=== PATIENT | female | born 1990 | race Caucasian/White ===

== ENCOUNTER 2023-06-28 15:11 | Outpatient (OUT) | payer OTHER, SELFPAY ==
[2023-06-29 04:07] LABS: Progesterone 0.1 ng/mL (.)
== END 2023-06-28 15:12 | disposition home or self-care (01) ==
PROVIDERS: Visit Provider Obstetrics & Gynecology
DX: Z31.89 Encounter for other procreative management (principal)
CPT/HCPCS: 36415; 84144

== ENCOUNTER 2023-08-13 14:51 | Outpatient (OUT) | payer OTHER, SELFPAY ==
[2023-08-14 04:07] LABS: Progesterone 3.2 ng/mL (.)
== END 2023-08-13 14:52 | disposition home or self-care (01) ==
PROVIDERS: Visit Provider Obstetrics & Gynecology
DX: Z31.89 Encounter for other procreative management (principal)
CPT/HCPCS: 36415; 84144

== ENCOUNTER 2023-09-12 12:28 | Outpatient (OUT) | payer OTHER, SELFPAY | END 2023-09-12 12:29 | disposition home or self-care (01) | LOC: LAB 12:29 | PROVIDERS: Visit Provider Obstetrics & Gynecology | DX: Z31.89 Encounter for other procreative management (principal) | CPT/HCPCS: 36415; 84144 ==

== ENCOUNTER 2023-09-28 09:05 | Outpatient (OUT) | payer OTHER, SELFPAY ==
--- OUTSIDE RECORDS SUMMARY | 2023-09-28 09:09 | XMS_ITS | CCD ---
Author Name Unknown Address [address] [place] [address] Organization [facility] Care Team Providers Care Caisson Worker Name Role Phone RACHEL AGUILAR Referring Unavailable Rachel Aguilar Primary Care Provider DR BUSHRA MATHUR Admitting Unavailable DR BUSHRA MATHUR Attending Unavailable [facility], DR MURCIA Primary Care Unavailable DR BUSHRA MATHUR Consulting Unavailable DR EUGENE HAY Consulting Unavailable Unavailable Primary Care Provider UnavailCOOKIE Tyson Attending Unavailable Allergies Allergy Classification Reported Allergen(s) Allergy Type Date of Onset Reaction(s) Facility (1 source) Contrast media Allergy to substance 9 [facility] Work Phone: (1 source) Other Allergy to substance Other [facility] Work Phone: (1 source) Iodine (And Iodine Containting Drugs) Drug allergy (disorder) [facility] (1 source) Iodides Propensity to adverse reactions to drug [address] [facility] Medications Current Medications Medication Drug Class(es) Dates Sig (Normalized) Sig (Original) aspirin 81 mg delayed release oral tablet (1 source) Platelet Aggregation Inhibitor, Nonsteroidal Anti-inflammatory Drug Start: 09-17-2019 Adult Aspirin EC Low Strength 81 MG Oral Tablet Delayed Release 09/17/2019 Provider: hydrocortisone 25 mg/ml topical lotion (1 source) Corticosteroid Start: 09-17-2019 Hydrocortisone 2.5% External Lotion 09/17/2019 Provider: Rachel Aguilar CNP ketoconazole 20 mg/ml topical cream (1 source) Azole Antifungal Start: 09-17-2019 Ketoconazole 2% External Cream 09/17/2019 Provider: omeprazole 20 mg delayed release oral capsule (1 source) Proton Pump Inhibitor Start: 02-06-2023 take 1 capsule by mouth twice daily before mealtime omeprazole (PRILOSEC) 20 MG delayed release capsule Take 1 capsule by mouth 2 times daily (before meals) 60 capsule 0 02/06/2023 Active progesterone 50 mg/ml injectable solution (1 source) Progesterone Start: 09-17-2019 Progesterone 50 MG/ML Intramuscular Oil 09/17/2019 Provider: SUMAtriptan 50 mg oral tablet (1 source) Serotonin-1b and Serotonin-1d Receptor Agonist Start: 12-22-2016 take 1 tablet by mouth once as needed SUMAtriptan (IMITREX) 50 MG tablet Take 1 tablet by mouth once as needed for Migraine 9 tablet 3 12/22/2016 Active Completed/Discontinued Medications Medication Drug Class(es) Dates Sig (Normalized) Sig (Original) aluminum & magnesium hydroxide-simethicon e (MAALOX) 30 mL, lidocaine viscous hcl (XYLOCAINE) 5 mL (GI COCKTAIL) (1 source) Start: 02-06-2023 End: 02-06-2023 aluminum & magnesium hydroxide-simethicon e (MAALOX) 30 mL, lidocaine viscous hcl (XYLOCAINE) 5 mL (GI COCKTAIL) amoxicillin 500 mg oral tablet (1 source) Penicillin-class Antibacterial Start: 04-24-2017 End: 04-24-2017 Amoxicillin 500 MG OR TABS 04/24/2017 - 04/24/2017 Provider: 1 ml diphenhydrAMINE hydrochloride 50 mg/ml cartridge (1 source) Histamine-1 Receptor Antagonist Start: 02-06-2023 End: 02-06-2023 diphenhydrAMINE (BENADRYL) injection 25 mg ferrous sulfate (2 sources) Start: 10-26-2018 End: 10-26-2018 FERROUS SULFATE [facility] 10/26/2018 - 10/26/2018 Provider: Start: 02-05-2017 take 1 tablet by stevan th twice daily ferrous sulfate 325 (65 FE) MG tablet take 1 tablet by mouth twice a day 0 02/05/2017 Active Ibuprofen (2 sources) Nonsteroidal Anti-inflammatory Drug Start: 10-26-2018 End: 10-26-2018 IBUPROFEN [facility] 10/26/2018 - 10/26/2018 Provider: Start: 02-05-2017 take 1 tablet by stevan th every eight hours as needed for pain ibuprofen (ADVIL;MOTRIN) 800 MG tablet Take 1 tablet by mouth every 8 hours as needed for Pain 30 tablet 0 02/05/2017 Active iopamidol (ISOVUE-370) 76 % injection 75 mL (1 source) Start: 02-06-2023 End: 02-06-2023 iopamidol (ISOVUE-370) 76 % injection 75 mL 2 ml ondansetron 2 mg/ml injection (1 source) Serotonin-3 Receptor Antagonist Start: 02-06-2023 End: 02-06-2023 ondansetron (ZOFRAN) injection 4 mg Sertraline (2 sources) Serotonin Reuptake Inhibitor Start: 10-26-2018 End: 10-26-2018 SERTRALINE 25 MG MISC 10/26/2018 - 10/26/2018 Provider: Start: 12-25-2016 take 1 tablet by stevan once daily sertraline (ZOLOFT) 25 MG tablet Indications: Depression complicating in second trimester, antepartum , 16 weeks gestation of Take 1 tablet by mouth daily 30 tablet 3 12/25/2016 Active Problems Active Problems Problem Classification Problem Date Documented Da te Episodic/Chronic Allergic reactions (2 sources) Contact dermatitis; Translations: [Contact Dermatitis] Onset: 09-17-2019 Episodic Gastritis and duodenitis (2 sources) Acute superficial gastritis; Translations: [Acute gastritis without bleeding] Onset: 02-06-2023 Episodic Menstrual disorders (4 sources) Irregular menstruation, unspecified; Translations: [IRREGULAR MENSTRUATION UNSPECIFIED] Onset: 08-23-2022 Chronic Nausea and vomiting (1 source) Vomiting without nausea; Translations: [Vomiting without nausea] 12-22-2016 Episodic Other complications of ; puerperium affecting management of mother (1 source) Third-stage hemorrhage; Translations: [Retained placenta without hemorrhage, delivered, with mention of complication] 02-04-2017 Episodic Residual codes; unclassified (1 source) Gestation period, 21 weeks; Translations: [21 weeks gestation of ] 02-04-2017 Episodic Substance-related disorders (1 source) Smoker; Translations: [Nicotine dependence, unspecified, uncomplicated] Onset: 02-03-2017 02-03-2017 Chronic Past or Other Problems Problem Classification Problem Date Documented Date Episodic/Chronic Early or threatened labor (1 source) Premature uterine contraction; Translations: [False labor before 37 completed weeks of gestation, unspecified trimester] Onset: 02-03-2017 02-04-2017 Episodic Hemorrhage during ; abruptio placenta; placenta previa (1 source) Antepartum hemorrhage; Translations: [Hemorrhage in early , unspecified] Onset: 02-03-2017 02-03-2017 Episodic Other complications of (1 source) High risk ; Translations: [Supervision of high risk , unspecified, second trimester] Onset: 02-03-2017 02-03-2017 Episodic Other complications of (1 source) RhD negative; Translations: [Other specified related conditions, first trimester] Onset: 10-30-2016 Resolved: 02-15-2017 02-15-2017 Episodic Other complications of (1 source) Spotting per vagina in ; Translations: [Spotting complicating , first trimester] Onset: 10-30-2016 Resolved: 02-15-2017 02-15-2017 Episodic Other and delivery including normal (1 source) Vaginal delivery; Translations: [Encounter for full-term uncomplicated delivery] Onset: 02-04-2017 02-04-2017 Episodic Polyhydramnios and other problems of amniotic cavity (1 source) Chorioamnionitis; Translations: [Chorioamnionitis, unspecified trimester, not applicable or unspecified] Onset: 02-04-2017 02-04-2017 Episodic Substance-related disorders (1 source) Marijuana user; Translations: [Cannabis use, unspecified, uncomplicated] Onset: 02-03-2017 02-03-2017 Episodic Unclassified (1 source) Finding of body mass index; Translations: [Body Mass Index] Onset: 09-17-2019 Unclassified (1 source) Questionnaires Phq-9 Total Score; Translations: [Questionnaires Phq-9 Total Score] Onset: 09-17-2019 Results Test Name Value Interpretation Reference Range Facility CT ABDOMEN PELVIS W IV CONTR Hank 02-07-2023 CT ABDOMEN PELVIS W IV CONTRAST EXAMINATION: CT OF THE ABDOMEN AND PELVIS WITH CONTRAST 02/06/2023 8:41 pm TECHNIQUE: CT of the abdomen and pelvis was performed with the administration of intravenous contrast. Multiplanar reformatted images are provided for review. Automated exposure control, iterative reconstruction, and/or weight based adjustment of the mA/kV was utilized to reduce the radiation dose to as low as reasonably achievable. COMPARISON: CT scan of abdomen and pelvis with intravenous contrast on 02/16/2016. HISTORY: ORDERING SYSTEM PROVIDED HISTORY: RUQ and epigastric pain TECHNOLOGIST PROVIDED HISTORY: RUQ and epigastric pain Decision Support Exception - unselect if not a suspected or confirmed emergency medical condition->Emergenc y Medical Condition (MA) FINDINGS: Lower Chest: Bases of lungs are clear. No evidence of pleural effusion. No evidence of hiatal hernia. No pneumoperitoneum. Organs: No demonstrable abnormality in liver, gallbladder, spleen, pancreas, bilateral adrenal glands or in bilateral kidneys. No evidence of obstructive uropathy. Normal bladder. GI/Bowel: No diagnostic finding in stomach. Small amount of gas scattered in multiple loops of distal small bowel with a few small fluid levels. There is normal appendix posteroinferior to cecum in pelvic position. Small amount of stool and gas scattered in cecum and ascending colon. There are a few small fluid levels in the ascending colon. In the transverse colon moderate amount of gas and small amount of stool are present. In the descending colon small amount of stool and gas are scattered. In proximal sigmoid colon small to moderate amount of gas and small amount of stool are present. Distal sigmoid colon is mostly empty. Small amount of gas present in the rectum. There is no evidence of diverticulosis coli. No evidence of colitis. No pericolic inflammatory change. Pelvis: No focal abnormal fluid collection or inflammatory change in pelvis. Retroflexed normal uterus. No adnexal mass. Peritoneum/Retroper itoneum: No evidence of periaortic or mesenteric pathologic lymphadenopathy. Normal abdominal aorta and mesenteric arteries. No ascites. Bones/Soft Tissues: At L4-L5 level, evidence of sole posterior protrusion of disc without significant stenosis. At L5-S1 level, mild degenerative disc disease with moderately prominent broad-based central posterior disc protrusion causing moderate central stenosis. Mild stenosis of neural foramina bilaterally. IMPRESSION: Normal liver, gallbladder, spleen, pancreas and kidneys. No obstructive uropathy. Normal appendix visualized. Small amount of gas scattered in multiple loops of small bowel with a few fluid levels. Findings may be nonspecific but acute enteritis is not excluded. No sign of colitis. Small to moderate amount of stool and gas in proximal colon. No diverticulosis coli. There is no acute process in the pelvis. No pelvic mass or abnormal fluid collection. No pneumoperitoneum. At L5-S1 level, moderately prominent posterior central disc protrusion with moderate central stenosis. Interpreted by: Tim Driver MD Signed by: Tim Driver MD 02/07/[address] [facility] CBC with Auto Differentialon 02-06-2023 Absolute Eos # 0.18 [facility] Absolute Immature Granulocyte 0.04 [facility] Absolute Lymph # 3.34 [facility] Absolute Blanco # 0.56 [facility] Basophils (Bld) [#/Vol] 0.06 10*3/uL [facility] Basophils/100 WBC (Bld) 1 % 0 - 2 % B ON [facility] Eosinophils/100 WBC (Bld) 2 % 1 - 4 % [facility] Hematocrit (Bld) [Volume fraction] 44.8 % 36.3 - 47.1 % [facility] Hemoglobin (Bld) [Mass/Vol] 15.1 g/dL 11.9 - 15.1 g/dL [facility] Immature granulocytes/100 WBC (Bld) 0 % 0 [facility] Interpretation and review of laboratory results Abnormal [facility] Lymphocytes/100 WBC (Bld) 28 % 24 - 43 % [facility] MCH (RBC) [Entitic mass] 29.5 pg 25. 2 - 33.5 pg [facility] MCHC (RBC) [Mass/Vol] 33.7 g/dL 28.4 - 34.8 g/dL [facility] MCV (RBC) [Entitic vol] 87.5 fL 82.6 - 102.9 fL [facility] Monocytes/100 WBC (Bld) 5 % 3 - 12 % B ON [facility] NRBC Automated 0.0 0.0 per 100 WBC [facility] Platelet distribution width (Bld) [Ratio] 12.0 % 11.8 - 14.4 % [facility] Platelet mean volume (Bld) [Entitic vol] 9.8 fL 8.1 - 13.5 fL [facility] Platelets (Bld) [#/Vol] 329 10*3/uL [facility] RBC (Bld) [#/Vol] 5.12 10*6/uL High 3.95 - 5.1 1 m/uL [facility] Segmented neutrophils/100 WBC (Bld) 64 % 36 - 65 % [facility] Segs Absolute 7.69 [facility] WBC (Bld) [#/Vol] 11.9 10*3/uL High [facility] CBC with Diffon 02-06-2023 Abs. Basophil 0.06 k/uL Normal 0.00-0.20 [facility] Comment on above: Performed By: #### C DP, HCG, CP, LIP #### [facility] [address] [place], [place] [id number] [employer]er Motor Vehicle: Donte Reyes MD Abs.Imm.Granulocyte 0.04 k/uL Normal 0.00-0.[address] [facility] Comment on above: Performed By: #### C DP, HCG, CP, LIP #### [address] [place] [id number] [employer]er Motor Vehicle: Donte Reyes MD Abs.Neutrophil (Seg) 7.69 k/uL Normal 1.50-8.10 [facility] Comment on above: Performed By: #### C DP, HCG, CP, LIP #### [address] [place], [facility]83 [employer]: Donte Reyes MD Basophils/100 WBC (Bld) 1 % Normal 0-2 [facility] Comment on above: Performed By: #### C DP, HCG, CP, LIP #### [address] [place] [address] [employer] Motor Vehicle: Donte Reyes MD Eosinophils (Bld) [#/Vol] 0.18 10*3/uL Normal 0.00-0.[address] [facility] Comment on above: Performed By: #### C DP, HCG, CP, LIP #### [address] [place] [address] [employer] Vehicle: Donte Reyes MD Eosinophils/100 WBC (Bld) 2 % Normal 1-[address] [facility] Comment on above: Performed By: #### C DP, HCG, CP, LIP #### [address] [place], [facility]83 [employer] Vehicle: Donte Reyes MD Erythrocyte distribution width (RBC) [Ratio] 12.0 % Normal 11.8-14.[address] [facility] Comment on above: Performed By: #### C DP, HCG, CP, LIP #### [address] [place], [facility]83 [employer] Vehicle: Donte Reyes MD Hematocrit (Bld) [Volume fraction] 44.8 % Normal 36.3-47.[address] [facility] Comment on above: Performed By: #### C DP, HCG, CP, LIP #### [address] [place], [place] [address] As[employer] Motor Vehicle: Donte Reyes MD Hemoglobin (Bld) [Mass/Vol] 15.1 g/dL Normal 11.9-15.[address] [facility] Comment on above: Performed By: #### C DP, HCG, CP, LIP #### [address] [place], [place] [address] [employer] Motor Vehicle: Donte Reyes MD Immature granulocytes/100 WBC (Bld) 0 % Normal [address] [facility] Comment on above: Performed By: #### C DP, HCG, CP, LIP #### [address] [place], [facility]83 [employer] Vehicle: Donte Reyes MD Lymphocytes (Bld) [#/Vol] 3.34 10*3/uL Normal 1.10-3.[address] [facility] Comment on above: Performed By: #### C DP, HCG, CP, LIP #### [address] [place], [facility]83 [employer] Vehicle: Donte Reyes MD Lymphocytes/100 WBC (Bld) 28 % Normal 24-[address] [facility] Comment on above: Performed By: #### C DP, HCG, CP, LIP #### [facility] [address] [place], [place] [id number] [employer] Vehicle: Donte Reyes MD MCH (RBC) [Entitic mass] 29.5 pg Normal 25.2-33.[address] [facility] Comment on above: Performed By: #### C DP, HCG, CP, LIP #### [address] [place], [facility]83 [employer] Vehicle: Donte Reyes MD MCHC (RBC) [Mass/Vol] 33.7 g/dL Normal 28.4-34.8 [facility] Comment on above: Performed By: #### C DP, HCG, CP, LIP #### [address] [place], [facility]83 [employer] Motor Vehicle: Donte Reyes MD MCV (RBC) [Entitic vol] 87.5 fL Normal 82.6-102.9 [facility] Comment on above: Performed By: #### C DP, HCG, CP, LIP #### [address] [place], [facility]83 [employer] Vehicle: Donte Reyes MD Monocytes (Bld) [#/Vol] 0.56 10*3/uL Normal 0.10-1.[address] [facility] Comment on above: Performed By: #### C DP, HCG, CP, LIP #### [address] [place], [place] [id number] [employer] Vehicle: Donte Reyes MD Monocytes/100 WBC (Bld) 5 % Normal 3-12 [facility] Comment on above: Performed By: #### C DP, HCG, CP, LIP #### [address] [place] [address] Assembler Motor Vehicle: Donte Reyes MD Neutrophil (Seg) 64 % Normal 36-65 [facility] Comment on above: Performed By: #### C DP, HCG, CP, LIP #### [address] [place], [place] [id number] [employer]er Motor Vehicle: Donte Reyes MD NRBC Automated 0.0 per [address] WBC Normal [address] [facility] Comment on above: Performed By: #### C DP, HCG, CP, LIP #### [address] [place], [facility]83 [employer] Vehicle: Donte Reyes MD Platelet mean volume (Bld) [Entitic vol] 9.8 fL Normal 8.1-13.[address] [facility] Comment on above: Performed By: #### C DP, HCG, CP, LIP #### [address] [place], [place] [id number] [employer] Vehicle: Donte Reyes MD Platelets (Bld) [#/Vol] 329 10*3/uL Normal 138-[address] [facility] Comment on above: Performed By: #### C DP, HCG, CP, LIP #### [address] [place], [place] [phone] [employer] Vehicle: Donte Reyes MD RBC (Bld) [#/Vol] 5.12 10*6/uL High 3.95-5.[address] [facility] Comment on above: Performed By: #### C DP, HCG, CP, LIP #### [address] [place], [place] [id number] [employer] Motor Vehicle: Donte Reyes MD WBC (Bld) [#/Vol] 11.9 10*3/uL High 3.5-11.[address] [facility] Comment on above: Performed By: #### C DP, HCG, CP, LIP #### [address] [place], [place] [id number] [employer] Vehicle: Donte Reyes MD CMPon 02-06-2023 Albumin [Mass/Vol] 5 g/dL 3.5 - 5.2 g/dL [facility] Albumin/Globulin [Mass ratio] 1.6 {ratio} 1.0 - 2.5 [facility] ALP [Catalytic activity/Vol] 61 U/L 35 - 104 U/L [facility] ALT [Catalytic activity/Vol] 15 U/L 5 - 33 U/L [facility] Anion gap [Moles/Vol] 10 mmol/L 9 - 17 mmol/L [facility] AST [Catalytic activity/Vol] 15 U/L NINF - 32 U/L [facility] Bilirubin [Mass/Vol] 0.6 mg/dL 0.3 - 1 .2 mg/dL [facility] Calcium [Mass/Vol] 10.4 mg/dL 8.6 - 10. 4 mg/dL [facility] Chloride [Moles/Vol] 100 mmol/L 98 - 10 7 mmol/L [facility] CO2 [Moles/Vol] 28 mmol/L 20 - 31 mmol/L [facility] Creatinine [Mass/Vol] 0.69 mg/dL 0.50 - 0.90 mg/dL [facility] GFR/1.73 sq M.predicted MDRD (S/P/Bld) [Vol rate/Area] - PINF [facility] Comment on above: These results are not intended for use in patients <18 years of age. eGFR results are calculated without a race factor using the 2020 CKD-EPI equation. Careful clinical correlation is recommended, particularly when comparing to results calculated using previous equations. The CKD-EPI equation is less accurate in patients with extremes of muscle mass, extra-renal metabolism of creatine, excessive creatine ingestion, or following therapy that affects renal tubular secretion. Glucose [Mass/Vol] 96 mg/dL 70 - 99 mg/dL [facility] Interpretation and review of laboratory results Abnormal [facility] Potassium [Moles/Vol] 3.5 mmol/L Low 3.7 - 5.3 mmol/L [facility] Protein [Mass/Vol] 8.1 g/dL 6.4 - 8.3 g/dL [facility] Sodium [Moles/Vol] 138 mmol/L 135 - 144 mmol/L [facility] Urea nitrogen [Mass/Vol] 12 mg/dL 6 - 20 mg/d L [facility] Urea nitrogen/Creatinine (Bld) [Mass ratio] 17 9 - 20 [facility] Comp Metabolic Profon 2022 Albumin [Mass/Vol] 5.0 g/dL Normal 3.5-5.[address] [facility] Comment on above: Performed By: #### C DP, HCG, CP, LIP #### [facility] [address] [place], [place] [id number] [employer]: Donte Reyes MD Albumin/Glob Ratio 1.6 Normal 1.0-2.[address] [facility] Comment on above: Performed By: #### C DP, HCG, CP, LIP #### [address] [place], [place] [phone] [employer] Vehicle: Donte Reyes MD Alkaline Phos 61 U/L Normal 35-104 [facility] Comment on above: Performed By: #### C DP, HCG, CP, LIP #### [address] [place], [place] [phone] [employer] Vehicle: Donte Reyes MD ALT [Catalytic activity/Vol] 15 U/L Normal 5-[address] [facility] Comment on above: Performed By: #### C DP, HCG, CP, LIP #### [address] [place], [place] [phone] [employer] Vehicle: Donte Reyes MD Anion gap [Moles/Vol] 10 mmol/L Normal 9-17 [facility] Comment on above: Performed By: #### C DP, HCG, CP, LIP #### [address] [place], [place] [phone] [employer] Vehicle: Donte Reyes MD AST [Catalytic activity/Vol] 15 U/L Normal <[address] [facility] Comment on above: Performed By: #### C DP, HCG, CP, LIP #### [facility] [address] [place], [place] [address] [employer]: Donte Reyes MD Bilirubin [Mass/Vol] 0.6 mg/dL Normal 0.3-1.2 [facility] Comment on above: Performed By: #### C DP, HCG, CP, LIP #### [facility] [address] [place], [place] [phone] [employer] Vehicle: Donte Reyes MD BUN/CRE Ratio 17 Normal 9-20 [facility] Comment on above: Performed By: #### C DP, HCG, CP, LIP #### [facility] [address] [place], [place] [id number] [employer] Vehicle: Donte Reyes MD Calcium [Mass/Vol] 10.4 mg/dL Normal 8.6-10.[address] [facility] Comment on above: Performed By: #### C DP, HCG, CP, LIP #### [facility] [address] [place], [place] [phone] [employer]: Donte Reyes MD Chloride [Moles/Vol] 100 mmol/L Normal 98-107 [facility] Comment on above: Performed By: #### C DP, HCG, CP, LIP #### [address] [place], [place] [phone] [employer]: Donte Reyes MD CO2 [Moles/Vol] 28 mmol/L Normal 20-31 [facility] Comment on above: Performed By: #### C DP, HCG, CP, LIP #### [facility] [address] [place], [place] [phone] [employer]: Donte Reyes MD Creatinine [Mass/Vol] 0.69 mg/dL Normal 0.50-0.90 [facility] Comment on above: Performed By: #### C DP, HCG, CP, LIP #### [facility] [address] [place] [address] [employer]: Donte Reyes MD GFR/1.73 sq M.predicted among non-blacks MDRD (S/P/Bld) [Vol rate/Area] mL/min/{1.73_m2} Normal >[address] [facility] Comment on above: Result Comment: These results are not intended for use in patients <18 years of age. eGFR results are calculated without a race factor using the 2020 CKD-EPI equation. Careful clinical correlation is recommended, particularly when comparing to results calculated using previous equations. The CKD-EPI equation is less accurate in patients with extremes of muscle mass, extra-renal metabolism of creatine, excessive creatine ingestion, or following therapy that affects renal tubular secretion. Performed By: #### C DP, HCG, CP, LIP #### [address] [place] [address] [employer]: Donte Reyes MD Glucose [Mass/Vol] 96 mg/dL Normal 70-[address] [facility] Comment on above: Performed By: #### C DP, HCG, CP, LIP #### [address] [place] [address] [employer] Vehicle: Donte Reyes MD Potassium [Moles/Vol] 3.5 mmol/L Low 3.7-5.3 [facility] Comment on above: Performed By: #### C DP, HCG, CP, LIP #### [address] [place] [address] [employer]: Donte Reyes MD Protein [Mass/Vol] 8.1 g/dL Normal 6.4-8.[address] [facility] Comment on above: Performed By: #### C DP, HCG, CP, LIP #### [address] [place] [address] [employer]: Donte Reyes MD Sodium [Moles/Vol] 138 mmol/L Normal [address] [facility] Comment on above: Performed By: #### C DP, HCG, CP, LIP #### [facility] [address] [place] [address] [employer]: Donte Reyes MD Urea nitrogen [Mass/Vol] 12 mg/dL Normal 6-[address] [facility] Comment on above: Performed By: #### C DP, HCG, CP, LIP #### [facility] [address] [place] [address] [employer] Vehicle: Donte Reyes MD HCG Qualitative, Serumon hCG Qual Negative NEGATIVE [facility] Comment on above: Specimens with hCG l evels near the threshold of the test (25 mIU/mL) may give a negative or indeterminate result. In such cases, another test should be performed with a new specimen in 48-72 hours. If early is suspected clinically in this setting, correlation with quantitative serum b-hCG level is suggested. [facility] has confirmed the use of plasma for this test. This has not been cleared or approved by the U.S. Food and Drug Administration. The FDA has determined that such clearance is not necessary. [facility] HCG Screen, Bloodon 02-07-20 23 HCG Screen, Blood Negative Normal NEG [facility] Comment on above: Result Comment: Spec imens with hCG levels near the threshold of the test (25 mIU/mL) may give a negative or indeterminate result. In such cases, another test should be performed with a new specimen in 48-72 hours. If early is suspected clinically in this setting, correlation with quantitative serum b-hCG level is suggested. [facility] has confirmed the use of plasma for this test. This has not been cleared or approved by the U.S. Food and Drug Administration. The FDA has determined that such clearance is not necessary. Performed By: #### C DP, HCG, CP, LIP #### [facility] [address] [place] [address] [employer]: Donte Reyes MD Lipaseon 02-06-2023 Lipase [Catalytic activity/Vol] 37 U/L Normal 13-[address] [facility] Comment on above: Performed By: #### C DP, HCG, CP, LIP #### [facility] [address] [place] [address] [employer]: Donte Reyes MD Lipase [Catalytic activity/Vol] 37 U/L 13 - 60 U/L [facility] Microscopic Urinalysison Bacteria, UA TRACE Abnormal None [facility] Epithelial Cells UA 2 TO 5 [facility] Interpretation and review of laboratory results Abnormal [facility] RBC clumps Auto (Urine sed) [#/Area] 0 TO 2 [facility] WBC, UA 0 TO 2 [facility] No Panel Informationon 02-06 [facility] UA w/Reflex Cultureon 2022 Bilirubin, SemiQt,Ur Negative Normal NEG [facility] Comment on above: Performed By: #### U AX, UMICAO #### [address] [place] [address] [employer] Vehicle: Donte Reyes MD Blood, Urine TRACE Abnormal NEG [facility] Comment on above: Performed By: #### U AX, UMICAO #### [address] [place] [address] [employer] Vehicle: Donte Reyes MD Clarity (U) Clear Normal CLEAR [facility] Comment on above: Performed By: #### U AX, UMICAO #### [facility] [address] [place] [address] [place] [address] [employer]: Donte Reyes MD Color (U) Yellow Normal YEL [facility] Comment on above: Performed By: #### U AX, UMICAO #### [address] [place] [address] [employer] Vehicle: Donte Reyes MD Glucose Ql (U) Negative Normal NEG [facility] Comment on above: Performed By: #### U AX, UMICAO #### [address] [place] [address] [employer] Vehicle: Donte Reyes MD Ketones Ql (U) Negative Normal NEG [facility] Comment on above: Performed By: #### U AX, UMICAO #### [facility] [address] [place] [address] [place] [address] [employer]: Donte Reyes MD Leukocyte esterase Test strip Ql (U) Negative Normal NEG [facility] Comment on above: Performed By: #### U AX, UMICAO #### [facility] [address] [place] [address] [place] [address] [employer]: Donte Reyes MD Nitrite,Ur Negative Normal NEG [facility] Comment on above: Performed By: #### U AX, UMICAO #### [address] [place], [place] [id number] [employer]: Donte Reyes MD PH,Ur 8.0 Normal 5.0-9.[address] [facility] Comment on above: Performed By: #### U AX, UMICAO #### [facility] [address] [place] [address] [place] [address] [employer]: Donte Reyes MD Protein Ql (U) Negative Normal NEG [facility] Comment on above: Performed By: #### U AX, UMICAO #### [facility] [address] [place] [address] Dr. [place], [place] [address] [employer]: Donte Reyes MD Spec. Accord,Ur 1.010 Normal 1.010-1.020 [facility] Comment on above: Performed By: #### U AX, UMICAO #### [facility] [address] [place] [address] Dr[address] [place], [place] [id number] [employer]: Donte Reyes MD Urobilinogen,Ur Normal Normal NORM [facility] Comment on above: Performed By: #### U AX, UMICAO #### [facility] [address] [place] [address] [place] [address] [employer]: Donte Reyes MD Urinalysis with Reflex to Cu ltureon 02-06-2023 Bilirubin Urine Negative NEGATIVE [facility] Color, UA Yellow Yellow [facility] Glucose Auto test strip (U) [Mass/Vol] Negative NEGATIVE [facility] Interpretation and review of laboratory results Abnormal [facility] Ketones (U) [Mass/Vol] Negative NEGATIVE [facility] Leukocyte esterase Auto test strip Ql (U) Negative NEGATIVE [facility] Nitrite Auto test strip Ql (U) Negative NEGATIVE [facility] Protein (U) [Mass/Vol] 8.0 mg/dL 5.0 - 9.0 [facility] Protein (U) [Mass/Vol] Negative NEGATIVE [facility] Specific Accord, UA 1.010 1.010 - 1.020 B ON [facility] Turbidity UA Clear Clear [facility] Urine Hgb TRACE Abnormal NEGATIVE [facility] Urobilinogen, Urine Normal Normal [facility] Urinalysis,Microon 3 Bacteria TRACE Abnormal NONE [facility] Comment on above: Performed By: #### U LUCAS PHILLIPS #### [facility] [address] [place] [address] [place] [address] [employer]: Donte Reyes MD Epithelial cells LM Ql (Urine sed) 2 TO 5 Normal 0-[address] [facility] Comment on above: Performed By: #### U AXYONISO #### [facility] [address] [place] [address] [employer]: Donte Reyes MD Urine RBC's 0 TO 2 Normal 0-[address] [facility] Comment on above: Performed By: #### U AX UMICAO #### [facility] [address] [place] [address] [employer]: Donte Reyes MD Urine WBC's 0 TO 2 Normal 0-[address] [facility] Comment on above: Performed By: #### U AX, UMGABRIELLAO #### [facility] [address] [place] [address] [employer] Vehicle: Donte Reyes MD DHEA SERUMon 08-30-2022 Dehydroepiandrosterone (DHEA) 237 ng/dL Normal 31-701 [facility] Comment on above: Result Comment: Age 1 - 5 years 0 - 67 6 - 7 years 0 - 110 8 - 10 years 0 - 185 11 - 12 years 0 - 201 13 - 14 years 0 - 318 15 - 16 years 39 - 481 17 - 19 years 40 - 491 >19 years 31 - 701 Performed By: #### Lora WEBSTER. #### [facility] [address] [place] [address] Dr. Dashawn Sanchez DHEA-SULFATEon 08-24-2022 DHEA-Sulfate 152.0 ug/dL Normal 84.8-378.0 [facility] Comment on above: Performed By: #### Lora RICHARD #### [facility] [address] [address] [address] Dashawn Sanchez FSHon 08-24-2022 FSH 7.0 mIU/mL Normal [facility] Comment on above: Result Comment: Adul t Female: Follicular phase 3.5 - 12.5 Ovulation phase 4.7 - 21.5 Luteal phase 1.7 - 7.7 Postmenopausal 25.8 - 134.8 Performed By: #### L BCON LICENSE OF [facility] #### [facility] [address] [place] [address] Dr. Dashawn Sanchez PROGESTERONEon 08-24-2022 Progesterone 0.1 ng/mL Normal [facility] Comment on above: Result Comment: Foll icular phase 0.1 - 0.9 Luteal phase 1.8 - 23.9 Ovulation phase 0.1 - 12.0 First trimester 11.0 - 44.3 Second trimester 25.4 - 83.3 Third trimester 58.7 - 214.0 Postmenopausal 0.0 - 0.1 Performed By: #### P KIERRA #### [facility] [address] [place] [address] Dr. Dashawn Sanchez US PELVIS AND TRANSVAGon US PELVIS AND TRANSVAG EXAMINATION: US PELVIS AND TRANSVAG HISTORY: Irregular periods COMPARISON: No relevant comparison available. TECHNIQUE: Transabdominal and transvaginal sonographic examination. FINDINGS: UTERUS: Normal size and appearance. Uterus size: 6.4 x 5.1 x 4.2 cm ENDOMETRIUM: Normal homogeneous appearance. Endometrial thickness: 6 mm RIGHT OVARY: Contains numerous peripherally located 5 mm follicles. Duplex Doppler demonstrates normal waveform and flow; resistive index 0.5. Ovary size: 4.2 x 2.2 x 2.0 cm LEFT OVARY: Contains numerous peripherally located 5 mm follicles. Duplex Doppler demonstrates normal waveform and flow; resistive index 0.6. Ovary size: 3.9 x 2.0 x 1.9 cm CUL-DE-SAC: Unremarkable. No significant free fluid. BLADDER: Unremarkable. OTHER: None. IMPRESSION: 1. Unremarkable uterus and endometrium. 2. Numerous small peripherally located follicles within both ovaries; nonspecific but can be seen with polycystic ovarian syndrome. Electronically authenticated by: EUGENE HAY Date: 2022-08-24 08:42 Normal [facility] CBC AUTO DIFFon 08-23-2022 BASO # 0.0 103/ul Normal 0.0-0.1 [facility] Comment on above: Performed By: #### C BC #### [facility] [address] [place] [address] Dr. Dashawn Sanchez Basophils/100 WBC (Bld) 0.5 % Normal 0.2-2.0 [facility] Comment on above: Performed By: #### C BC #### [facility] [address] [place] [address] Dr. Dashawn Sanchez EO # 0.1 103/ul Normal 0.0-0.7 [facility] Comment on above: Performed By: #### C BC #### [facility] [address] [place] [address] Dr. Dashawn Sanchez Eosinophils/100 WBC (Bld) 1.9 % Normal 0.9-7.0 [facility] Comment on above: Performed By: #### C BC #### [facility] [address] [place] [address] Dr. Dashawn Sanchez Erythrocyte distribution width (RBC) [Ratio] 12.4 % Normal 11.0-15.0 [facility] Comment on above: Performed By: #### C BC #### [facility] [address] [place] [address] Dr. Dashawn Sanchez Hematocrit (Bld) [Volume fraction] 40.5 % Normal 36.0-48.0 [facility] Comment on above: Performed By: #### C BC #### [facility] [address] [place] [address] Dr. Dashawn Sanchez Hemoglobin (Bld) [Mass/Vol] 13.7 g/dL Normal 12.0-16.0 [facility] Comment on above: Performed By: #### C BC #### [facility] [address] [place] [address] Dr. Dashawn Sanchez IG # 0.02 10e3/ul Normal 0.00-0.03 [facility] Comment on above: Performed By: #### C BC #### [facility] [address] [place] [address] Dr. Dashawn Sanchez IG % 0.3 % Normal 0.0-0.5 [facility] Comment on above: Performed By: #### C BC #### [facility] [address] [place] [address] Dr. Dashawn Sanchez LYMPH # 2.8 103/ul Normal 1.2-3.8 [facility] Comment on above: Performed By: #### C BC #### [facility] [address] [place] [address] Dr. Dashawn Sanchez Lymphocytes/100 WBC (Bld) 37.1 % Normal 20.5-60.0 [facility] Comment on above: Performed By: #### C BC #### [facility] [address] [place] [address] Dr. Dashawn Sanchez MANUAL DIFF REQ NO Normal [facility] Comment on above: Performed By: #### C BC #### [facility] [address] [place] [address] Dr. Dashawn Sanchez MCH (RBC) [Entitic mass] 29.6 pg Normal 26.7-34.0 [facility] Comment on above: Performed By: #### C BC #### [facility] [address] [place] [address] Dr. Dashawn Sanchez MCHC (RBC) [Mass/Vol] 33.8 g/dL Normal 29.9-35.2 [facility] Comment on above: Performed By: #### C BC #### [facility] [address] [place] [address] Dr. Dashawn Sanchez MCV (RBC) [Entitic vol] 87.5 fL Normal 81.0-99.0 [facility] Comment on above: Performed By: #### C BC #### [facility] [address] [place] [address] Dr. Dashawn Sanchez MONO # 0.3 103/ul Normal 0.3-0.8 [facility] Comment on above: Performed By: #### C BC #### [facility] [address] [place] [address] Dr. Dashawn Sanchez Monocytes/100 WBC (Bld) 4.5 % Normal 1.7-12.0 [facility] Comment on above: Performed By: #### C BC #### [facility] [address] [place] [address] Dr. Dashawn Sanchez NEUT # 4.1 103/ul Normal 1.4-6.5 [facility] Comment on above: Performed By: #### C BC #### [facility] [address] [place] [address] Dr. Dashawn Sanchez Neutrophils/100 WBC (Bld) 55.7 % Normal 43.0-75.0 [facility] Comment on above: Performed By: #### C BC #### [facility] [address] [place] [address] Dr. Dashawn Sanchez Platelet mean volume (Bld) [Entitic vol] 9.6 fL Normal 9.5-13.5 [facility] Comment on above: Performed By: #### C BC #### [facility] [address] [place] [address] Dr. Dashawn Sanchez PLT 345 103/ul Normal 150-450 [facility] Comment on above: Performed By: #### C BC #### [facility] [address] [place] [address] Dr. Dashawn Sanchez RBC 4.63 106/ul Normal 4.20-5.40 [facility] Comment on above: Performed By: #### C BC #### [facility] [address] [place] [address] Dr. Dashawn Sanchez WBC 7.4 103/ul Normal 4.0-11.0 [facility] Comment on above: Performed By: #### C BC #### [facility] [address] [place] [address] Dr. Dashawn Sanchez FREE T4on 08-23-2022 Free T4 [Mass/Vol] 1.17 ng/dL Normal 0.76-1.46 [facility] Comment on above: Performed By: #### F T4 #### [facility] [address] [place] [address] Dr. Dashawn Sanchez GLYCOHEMOGLOBIN A1Con 2021 ADA RECOMMENDATION SEE BELOW Normal [facility] Comment on above: Result Comment: ADA RECOMMENDED LIMIT 4.0 - 6.0 ADA THERAPEUTIC TARGET < 7.0 ACTION SUGGESTED > 7.0 Performed By: #### A 1C #### [facility] [address] [place] [address] Dr. Dashawn Sanchez Glucose [Mass/Vol] 114 mg/dL Normal [facility] Comment on above: Performed By: #### A 1C #### [facility] [address] [place] [address] Dr. Dashawn Sanchez HbA1c (Bld) [Mass fraction] 5.6 % Normal 4.5-6.2 [facility] Comment on above: Performed By: #### A 1C #### [facility] [address] [place] [address] Dr. Dashawn Sanchez LDHon 08-23-2022 LDH 141 U/L Normal 81-234 [facility] Comment on above: Performed By: #### L DH, TSH #### [facility] [address] [place] [address] Dr. Dashawn Sanchez TSHon 08-23-2022 TSH 0.701 uIU/mL Normal 0.358-3.740 [facility] Comment on above: Performed By: #### L DH, TSH #### [facility] [address] [address] [address] Dashawn Sanchez TAVIA Screenon 09-06-2018 TAIVA Screen Negative Normal NEG [facility] Comment on above: Result Comment: This test was run on the [employer] TAVIA test system. The system provides ten test results (HEp-2NA, dsDNA, SSA, SSB, Sm, ETYMOLOGY TEACHER, Scl-70, Susana-1, Centromere and Histone analytes) from a single patient sample. A negative TAVIA screen indicates that the specimen was negative for all ten markers. Performed By: #### R A, ANASC, PADMAJA, CRP, ABC, SED, COLIN, NILS, VZI #### [address] [id number] C-Reactive Proteinon 018 CRP [Mass/Vol] 0.6 mg/L Normal 0.0-5.0 [facility] Comment on above: Performed By: #### R A, ANASC, PADMAJA, CRP, ABC, SED, COLIN, NILS, VZI #### [facility] [employer] [address] [place] [address] [id number] Hep B Core Abon 09-06-2018 Hep B Core Ab NONREACTIVE Normal NR [facility] Comment on above: Performed By: #### R A, ANASC, PADMAJA, CRP, ABC, SED, COLIN, NILS, VZI #### [facility] [employer] [address] [place] [address] [id number] Measles (Rubeola) Imon 09-06 Measles (Rubeola) Im 4.12 Normal >1.09 [facility] Comment on above: Result Comment: Interpretation: IMMUNE Reference Range: <0.91 Not Immune 0.91-1.09 Equivocal >1.09 Immune Performed By: #### R A, ANASC, PADMAJA, CRP, ABC, SED, COLIN, NILS, VZI #### [address] [id number] Mumps,Immun,Abon 09-06-2018 Mumps,Immun,Ab 2.02 Normal >1.09 [facility] Comment on above: Result Comment: Interpretation: IMMUNE Reference Range: <0.91 Not Immune 0.91-1.09 Equivocal >1.09 Immune Performed By: #### R A, ANASC, PADMAJA, CRP, ABC, SED, COLIN, NILS, VZI #### [address] [id number] RA Screenon 09-06-2018 RA Screen 19.3 IU/mL High <14 [facility] Comment on above: Performed By: #### R A, ANASC, PADMAJA, CRP, ABC, SED, COLIN, NILS, VZI #### [address] [id number] Rubella Ab, IgGon 09-06-2018 Rubella Ab, IgG 31.0 IU/mL Normal [facility] Comment on above: Result Comment: REFERENCE RANGE: <5.0 NON-REACTIVE (non-immune) 5.0 TO 9.9 EQUIVOCAL >=10.0 REACTIVE (immune) Performed By: #### R A, ANASC, PADMAJA, CRP, ABC, SED, COLIN, NILS, VZI #### [address] [address] Sedimentation Rateon 018 Sedimentation Rate 4 mm Normal 0-20 [facility] Comment on above: Performed By: #### R A, ANASC, PADMAJA, CRP, ABC, SED, COLIN, NILS, VZI #### [address] [address] VZ Immunityon 09-06-2018 VZ Immunity 2.27 Normal >1.09 [facility] Comment on above: Result Comment: Interpretation: IMMUNE Reference Range: <0.91 Not Immune 0.91-1.09 Equivocal >1.09 Immune Performed By: #### R A, ANASC, PADMAJA, CRP, ABC, SED, COLIN, NILS, VZI #### [facility] [address] [place] [address] Vital Signs Date Time Vital Sign Value Performing Clinician Facility 02-07-2023 00:03-0400 Body temperature 97.9 [degF] Cookie Carroll [facility] 02-07-2023 00:03-0400 Diastolic blood pressure 70 mm[Hg] Cookie Carroll DO Work Phone: [facility] [employer] 02-07-2023 00:03-0400 Heart rate 60 /min Cookie Carroll DO [facility] 02-07-2023 00:03-0400 Respiratory rate 20 /min Cookie Carroll [facility] 02-07-2023 00:03-0400 Systolic blood pressure 116 mm[Hg] Cookie Carroll DO [facility] [employer] 02-06-2023 22:30-0400 SaO2% (BldA) [Mass fraction] 97 % Cookie Carroll DO Work Phone: [facility] [employer] 09-17-2019 15:19-0500 BMI (Body Mass Index) 27.8 kg/m2 [facility] Work Phone: 09-17-2019 15:19-0500 Body Temperature 98.7 [degF] [facility] Work Phone: 09-17-2019 15:19-0500 Body weight 69.[address] [facility] Work Phone: 09-17-2019 15:19-0500 BP Diastolic 68 mm[Hg] [facility] Work Phone: 09-17-2019 15:19-0500 BP Systolic 108 mm[Hg] Rachel Nye [facility] Work Phone: 09-17-2019 15:19-0500 BSA (Body Surface Area) 1.7 m2 Rachel Aguilar [facility] Work Phone: 09-17-2019 15:19-0500 Flow Rate 0 L/min Rachel [facility] Work Phone: 09-17-2019 15:19-[address] [facility] Work Phone: 09-17-2019 15:19-0500 Inhaled Oxygen Concentration 21 % [facility] Work Phone: 09-17-2019 15:19-0500 Pulse (Heart Rate) 87 /min Rachel Mills [facility] Work Phone: 09-17-2019 15:19-0500 Pulse Oximetry 98 % [facility] Work Phone: 09-17-2019 15:19-0500 Respiratory Rate 18 /min [facility] Work Phone: Encounters Encounter Date Encounter Type Care Provider Facility Start: 02-06-2023 End: 02-07-2023 Emergency department patient visit COOKIE CARROLL [facility] Start: 02-06-2023 End: 02-07-2023 [facility] department [facility] ED Comment on above: Acute superficial ga stritis without hemorrhage (Primary Dx) Start: 08-23-2022 End: 08-24-[address] BUSHRA MATHUR Facility:[facility] Start: 09-17-2019 End: 09-17-2019 Established patient Rachel Aguilar Work Phone: [facility] Work Phone: Start: 09-05-2018 End: 09-06-2018 Patient encounter procedure RACHEL AGUILAR [facility] Procedures Date Procedure Procedure Detail Performing Clinician Start: 02-06-2023 Ct abdomen & pelvis w/contrast material Cookie Morris Kaylee DO Work Phone: Start: 02-06-2023 Comprehensive metabo lic panel Cookie Carroll DO Work Phone: Start: 02-06-2023 Urinalysis microscopic only Cookie Carroll DO Work Phone: Start: 02-06-2023 Urnls dip stick/tabl et rgnt auto w/o microscopy Cookiemelvi Carroll DO Work Phone: Start: 09-06-2018 C-reactive protein CYNT CAMA CASPER Start: 09-06-2018 MUMPS ANTIBODY, IGG ADAM THIA CASPER Start: 09-06-2018 Nuclear Ab IF (S) [Titer] RACHEL CASPER Start: 09-06-2018 RHEUMATOID FACTOR CYNTH IA CASPER Start: 09-06-2018 RUBELLA ANTIBODY, IGG C YNTHIA CASPER Start: 09-06-2018 RUBEOLA ANTIBODY IGG CY NTHIA CASPER Start: 09-06-2018 SEDIMENTATION RATE CYNT CAMA CASPER Start: 09-06-2018 VARICELLA ZOSTER ANT IBODY, IGG RACHEL CASPER Start: 02-04-2017 H/O: surgery S/P D&C 02/04/17 Cookiemelvi Carroll DO Work Phone: Start: 03-13-2016 Microscopic observat ion [Identifier] in Cervix by Cyto stain Cookiemelvi Carroll DO Work Phone: Plan of Treatment Date Care Activity Detail Author Start: 08-28-2028 DTaP/Tdap/Td vaccine (9 - Td or Tdap) DTaP/Tdap/Td vaccine (9 - Td or Tdap) [employer] Start: 05-01-2023 Influenza vaccination Flu vacc ine (Season Ended) [employer] Start: 2020 Screening for malign ant neoplasm of cervix [facility] Start: 03-13-2019 Screening for malign ant neoplasm of cervix Pap smear [facility] [employer] Start: 2008 Hepatitis C screening Hepatitis C sc reen [facility] Start: 2002 Depression Screen Depression Screen [facility] [employer] Start: 1991 Varicella vaccine (1 of 2 - 2-dose childhood series) Varicella vaccine (1 of 2 - 2-dose childhood series) [facility] Start: 05-01-1991 COVID-19 Vaccine (#1) COVID-19 Vacci ne (#1) [facility]EL[facility] W IV CONTRAST Additional Contrast? None CT ABDOMEN PELVIS W IV CONTRAST Additional Contrast? None Imaging STAT 02/06/2023 9:45 PM EDT [facility] Work Phone: Immunizations Immunization Date Immunization Notes Care Provider Tete saldana 07-11-2016 tetanus toxoid, redu madhu diphtheria toxoid, and acellular pertussis vaccine, adsorbed Cookie Carroll DO Work Phone: [facility] Payers Date Payer Category Payer Unknown [id number] 1990 Unknown [id number] 1990 Unknown [id number] 1959 Unknown [id number] Social History Date Type Detail Facility Assertion [facility] Work Phone: Assertion Alcohol consumpt ion screening (procedure) [facility] Work Phone: Assertion Gender identity finding (finding) [facility] Work Phone: Assertion Finding of sexua l orientation (finding) [facility] Work Phone: Tobacco smoking status Unknown if ever smoked [facility] Work Phone: Start: 02-03-2017 Tobacco smoking status NHIS Smokes tobacco daily [facility] of [facility] use [facility] Work Phone: Start: 02-03-2017 End: 03-01-2017 Cigarettes smoked current (pack per day) - Reported 0.5 [employer] Phone: Start: 02-03-2017 Tobacco use and exposure Smokeless tobacco non-user [employer] Phone: Start: 03-01-2017 Alcohol intake Current drinke r of alcohol (finding) [employer] Phone: Start: 10-28-2013 Alcohol Comment rarely [place] Phone: Start: 1990 Sex Assigned At Not on file B ON [employer] Phone: NEGATED: Highlighted row Assertion Illicit drug use (finding) [facility] Work Phone: NEGATED: Highlighted row Assertion Misuse of prescription only drugs (finding) [facility] [employer] [facility] Work Phone: NEGATED: Highlighted row Assertion She has not had 4 or more drinks in a day within the past year. [facility] [employer] [facility] Work Phone: NEGATED: Highlighted row Assertion Exposure to pollution (event) [facility] Work Phone: NEGATED: Highlighted row Assertion Tobacco user (finding) [facility] Work Phone: Mental Status Date Assessment Result Facility Cognitive function Oriented to t almas, place, and person Oriented to person time and place (finding) [facility] Work Phone: Hospital Discharge instructions 02-06-2023 Discharge InstructionsAttachments Note Date & Type Note Facility 02-06-2023 Hospital Discharg e instructions Cookie Carroll DO - 02/06/2023 11:48 PM EDT Take the antacid medications as prescribed. Avoid acidic foods and spicy foods and caffeinated beverages. Follow-up with your doctor or call the number above for gastroenterology to set up for an outpatient endoscopy if symptoms do not improve in the next 2 weeks. Return if they get worse. Stay on a bland diet for the next 24 to 48 hours or until symptoms have completely resolved. The following attachments cannot be sent through Care Everywhere.Gastritis ([place])documented in this encounter [facility] [employer] Phone: Evaluation note Note Date & Type Note Facility Evaluation note Diagnosis Acute superficial gastritis without hemorrhage- Primary documented in this encounter [facility] [employer] Phone: Summary Purpose Family History No Family History Records Found Includes: Family History in patient's chart No Family History RecordedNo Family History Records FoundNo Family History Records Found Advance Directives No Advanced Directives Records FoundLatest Code Status on File Code Status Date Activated Date Inactivated Comments Full Code 02/03/2017 6:11 AM 02/05/2017 1:07 PM Code Status History Code Status Date Activated Date Inactivated Comments Full Code 02/03/2017 4:37 AM 02/03/2017 6:11 AM Full Code 12/21/2016 7:14 PM 12/22/2016 8:29 PM Reason for Referral No Reason for Referral Recorded Assessments Findings Encounter Date Contact dermatitis Medical Established Patient with Rachel Aguilar [facility] 09/17/2019 Contact dermatitis of the le ft forearm Medical Established Patient with Rachel Aguilar [facility] 09/17/2019 PHQ-9: total score was 0 09/17/2019 Medi benjamin Established Patient with Rachel Aguilar [facility] 09/17/2019 Z68.27 - Body mass index (BM I) 27.0-27.9 adult Medical Established Patient with Rachel Aguilar [facility] 09/17/2019 Instructions Instructions not supported for this document type No Instructions Recorded History of Present Illness History of Present Illness not supported for this document type No History of Present Illness Recorded Review of System Review of Systems not supported for this document type No Review of Systems Recorded Physical Exam Physical Exam not supported for this document type No Physical Exam Recorded Additional Source Comments INFORMATION SOURCE (unrecogn ized section and content) DATE CREATED AUTHOR 07/13/2019 [facility] DATE CREATED AUTHOR AUTHOR'S ORGANIZ ATION 08/30/2022 [facility] DATE CREATED AUTHOR AUTHOR'S ORGANIZ ATION 02/07/2023 Michelle sanchez Evaluations & Outcomes (unre cognized section and content) Includes: Evaluations & Outcomes for active GoalsNo Outcomes Recorded Reason for Visit (unrecogniz ed section and content) Reason Comments Abdominal Pain Mid abd pain ongoing for past 3 days. Emesis Ordered Prescriptions (unrec ognized section and content) Prescription Sig Dispensed Refills Start Date End Da te omeprazole (PRILOSEC) 20 MG delayed release capsule Take 1 capsule by mouth 2 times daily (before meals) 60 capsule 0 02/06/2023 Scheduled Active and Recently Administ ered Medications (unrecognized section and content) Medication Order 02/05/2023 02/06/2023 02/07/2023 aluminum & magnesium hydroxide-simethicone (MAALOX) 30 mL, lidocaine viscous hcl (XYLOCAINE) 5 mL (GI COCKTAIL) (COMPLETED) Oral, ONCE, On Sun02/06/23 at 2245, For 1 dose, Take 5 mL from lidocaine viscous 2% cup and mix with 30 mL of maalox and then administer. 2252 (Given - Provider: Jinny Soriano RN) diphenhydrAMINE (BENADRYL) injection 25 mg (COMPLETED) 25 mg, IntraVENous, ONCE, 1 dose, On Sun02/06/23 at 2044, IV Push at rate not to exceed 25 mg/min. 2118 (Given - Provider: Jinny Soriano RN) ondansetron (ZOFRAN) injection 4 mg (COMPLETED) 4 mg, IntraVENous, ONCE, 1 dose, On Sun02/06/23 at 2044 2118 (Given - Provider: Jinny Soriano, RACHELLE) PRN Medication Order 02/05/2023 02/06/2023 02/07/2023 iopamidol (ISOVUE-370) 76 % injection 75 mL (COMPLETED) 75 mL, IntraVENous, IMG ONCE PRN, 1 dose, Starting on Sun02/06/23 at 2140, Until Discontinued, Other 2154 (Given - Provider: Jad Vallejo) FOR RECORDS PERTAINING TO PATIENTS WHO ARE OR HAVE BEEN ENROLLED IN A CHEMICAL DEPENDENCY/SUBSTANCEABUSE PROGRAM, SOME INFORMATION MAY BE OMITTED. This clinical summary was aggregated from multiple sources. Caution should be exercised in using it in the provision of clinical care. This summary normalizes information from multiple sources, and as a consequence, information in this document may materially change the coding, format and clinical context of patient data. In addition, data may be omitted in some cases. CLINICAL DECISIONS SHOULD BE BASED ON THE PRIMARY CLINICAL RECORDS. [facility] [employer] [facility]. provides no warranty or guarantee of the accuracy or completeness of information in this document.
[2023-09-28 09:54] LABS: HCG Quantitative <1 mIU/mL
== END 2023-09-28 09:06 | disposition home or self-care (01) ==
LOC: LAB 09:05
PROVIDERS: Visit Provider Obstetrics & Gynecology
DX: N83.9 Noninflammatory disorder of ovary, fallopian tube and broad ligament, unspecified (principal)
CPT/HCPCS: 36415; 84702

== ENCOUNTER 2023-09-28 09:08 | Day surgery (SDC) | payer OTHER, SELFPAY ==
--- OUTSIDE RECORDS SUMMARY | 2023-09-28 09:15 | XMS_ITS | CCD ---
Author Name Unknown Address [address] [place] [address] Organization [facility] Care Team Providers Care Cost Accounting Manager Name Role Phone RACHEL AGUILAR Referring Unavailable Rachel Aguilar Primary Care Provider DR BUSHRA MATHUR Admitting Unavailable DR BUSHRA MATHUR Attending Unavailable [facility] Primary Care Unavailable DR BUSHRA MATHUR Consulting Unavailable DR EUGENE HAY Consulting Unavailable Unavailable Primary Care Provider UnavailCOOKIE Tyson Attending Unavailable Allergies Allergy Classification Reported Allergen(s) Allergy Type Date of Onset Reaction(s) Facility (1 source) Contrast media Allergy to substance 9 [facility] Work Phone: (1 source) Other Allergy to substance Other [facility] Work Phone: (1 source) Iodine (And Iodine Containting Drugs) Drug allergy (disorder) [facility] Repository (1 source) Iodides Propensity to adverse reactions to drug 6 [facility] Medications Current Medications Medication Drug Class(es) Dates [...] sources) Start: 10-26-2018 End: 10-26-2018 [facility] 10/26/2018 - 10/26/2018 Provider: Start: 02-05-2017 take 1 tablet by stevan th twice daily ferrous sulfate 325 (65 FE) MG tablet take 1 tablet by mouth twice a day 0 02/05/2017 Active Ibuprofen (2 sources) Nonsteroidal Anti-inflammatory Drug Start: 10-26-2018 End: 10-26-2018 [facility] 10/26/2018 - 10/26/2018 Provider: Start: 02-05-2017 take [...] Tim Driver MD 02/07/23 Final result Normal [facility] CBC with Auto Differentialon 02-06-2023 Absolute Eos # 0.18 [facility] Absolute Immature Granulocyte 0.04 [facility] Absolute Lymph # 3.34 [facility] Absolute [place] # 0.56 [facility] Basophils (Bld) [#/Vol] 0.06 10*3/uL [facility] Basophils/100 WBC (Bld) 1 % 0 - 2 % [facility] Eosinophils/100 WBC (Bld) 2 % 1 - 4 % [facility] Hematocrit (Bld) [Volume fraction] 44.8 % 36.3 - 47.1 % [facility] Hemoglobin (Bld) [Mass/Vol] 15.1 g/dL 11.9 - 15.1 g/dL [facility] Immature granulocytes/100 WBC (Bld) 0 % 0 [facility] Interpretation and review of laboratory results Abnormal [facility] Lymphocytes/100 WBC (Bld) 28 % 24 - 43 % [facility] MCH (RBC) [Entitic mass] 29.5 pg 25. 2 - 33.5 pg [facility] MCHC (RBC) [Mass/Vol] 33.7 g/dL 28.4 - 34.8 g/dL [facility] MCV (RBC) [Entitic vol] 87.5 fL 82.6 - 102.9 fL [facility] Monocytes/100 WBC (Bld) 5 % 3 - 12 % [facility] NRBC Automated 0.0 0.0 per 100 WBC [facility] Platelet distribution width (Bld) [Ratio] 12.0 % 11.8 - 14.4 % [facility] Platelet mean volume (Bld) [Entitic vol] 9.8 fL 8.1 - 13.5 fL [facility] Platelets (Bld) [#/Vol] 329 10*3/uL [facility] RBC (Bld) [#/Vol] 5.12 10*6/uL High 3.95 - 5.1 1 m/uL [facility] Segmented neutrophils/100 WBC (Bld) 64 % 36 - 65 % [facility] Segs Absolute 7.69 [facility] WBC (Bld) [#/Vol] 11.9 10*3/uL High [facility] CBC with Diffon 02-06-2023 Abs. Basophil 0.06 k/uL Normal 0.00-0.20 [facility] Comment on above: Performed By: #### C DP, HCG, CP, LIP #### [facility] [address] [place], [place] [id number] Track Announcer: Donte Reyes MD Abs.Imm.Granulocyte 0.04 k/uL Normal 0.00-0.30 [facility] Comment on above: Performed By: #### C DP, HCG, CP, LIP #### [address] [place] [id number] Track Announcer: Donte Reyes MD Abs.Neutrophil (Seg) 7.69 k/uL Normal 1.50-8.10 [facility] Comment on above: Performed By: #### C DP, HCG, CP, LIP #### [address] [place], [facility] Track Announcer: Donte Reyes MD Basophils/100 WBC (Bld) 1 % Normal 0-2 [facility] [place] Comment on above: Performed By: #### C DP, HCG, CP, LIP #### [address] [place] [address] Track Announcer: Donte Reyes MD Eosinophils (Bld) [#/Vol] 0.18 10*3/uL Normal 0.00-0.4 4 [facility] Comment on above: Performed By: #### C DP, HCG, CP, LIP #### [address] [place] [address] Track Announcer: Donte Reyes MD Eosinophils/100 WBC (Bld) 2 % Normal 1-4 [facility] Comment on above: Performed By: #### C DP, HCG, CP, LIP #### [address] [place], [facility] Track Announcer: Donte Reyes MD Erythrocyte distribution width (RBC) [Ratio] 12.0 % Normal 11.8-14.4 [facility] Comment on above: Performed By: #### C DP, HCG, CP, LIP #### [address] [place], [facility] Track Announcer: Donte Reyes MD Hematocrit (Bld) [Volume fraction] 44.8 % Normal 36.3-47.1 [facility] Comment on above: Performed By: #### C DP, HCG, CP, LIP #### [address] [place], [place] [address] Track Announcer: Donte Reyes MD Hemoglobin (Bld) [Mass/Vol] 15.1 g/dL Normal 11.9-15.1 [facility] Comment on above: Performed By: #### C DP, HCG, CP, LIP #### [address] [place], [place] [address] Track Announcer: Donte Reyes MD Immature granulocytes/100 WBC (Bld) 0 % Normal 0 [facility] Comment on above: Performed By: #### C DP, HCG, CP, LIP #### [address] [place], [facility] Track Announcer: Donte Reyes MD Lymphocytes (Bld) [#/Vol] 3.34 10*3/uL Normal 1.10-3.7 0 [facility] Comment on above: Performed By: #### C DP, HCG, CP, LIP #### [address] [place], [facility] Track Announcer: Donte Reyes MD Lymphocytes/100 WBC (Bld) 28 % Normal 24-43 [facility] Comment on above: Performed By: #### C DP, HCG, CP, LIP #### [facility] [address] [place], [place] [id number] Track Announcer: Donte Reyes MD MCH (RBC) [Entitic mass] 29.5 pg Normal 25.2-33.5 [facility] Comment on above: Performed By: #### C DP, HCG, CP, LIP #### [address] [place], [facility] Track Announcer: Donte Reyes MD MCHC (RBC) [Mass/Vol] 33.7 g/dL Normal 28.4-34.8 [facility] Comment on above: Performed By: #### C DP, HCG, CP, LIP #### [address] [place], [facility] Track Announcer: Donte Reyes MD MCV (RBC) [Entitic vol] 87.5 fL Normal 82.6-102.9 [facility] Comment on above: Performed By: #### C DP, HCG, CP, LIP #### [address] [place], [facility] Track Announcer: Donte Reyes MD Monocytes (Bld) [#/Vol] 0.56 10*3/uL Normal 0.10-1.20 [facility] Comment on above: Performed By: #### C DP, HCG, CP, LIP #### [address] [place], [place] [id number] Track Announcer: Donte Reyes MD Monocytes/100 WBC (Bld) 5 % Normal 3-12 M [facility] [place] Comment on above: Performed By: #### C DP, HCG, CP, LIP #### [address] [place] [address] Track Announcer: Donte Reyes MD Neutrophil (Seg) 64 % Normal 36-65 [facility] Comment on above: Performed By: #### C DP, HCG, CP, LIP #### [address] [place], [place] [address] Track Announcer: Donte Reyes MD NRBC Automated 0.0 per 100 WBC Normal 0.0 [facility] Comment on above: Performed By: #### C DP, HCG, CP, LIP #### [address] [place], [facility] Track Announcer: Donte Reyes MD Platelet mean volume (Bld) [Entitic vol] 9.8 fL Normal 8.1-13.5 [facility] Comment on above: Performed By: #### C DP, HCG, CP, LIP #### [address] [place], [place] [id number] Track Announcer: Donte Reyes MD Platelets (Bld) [#/Vol] 329 10*3/uL Normal 138-453 [facility] Comment on above: Performed By: #### C DP, HCG, CP, LIP #### [address] [place], [place] 9400683 Track Announcer: Donte Reyes MD RBC (Bld) [#/Vol] 5.12 10*6/uL High 3.95-5.11 [facility] Comment on above: Performed By: #### C DP, HCG, CP, LIP #### [address] [place], [place] [id number] Track Announcer: Donte Reyes MD WBC (Bld) [#/Vol] 11.9 10*3/uL High 3.5-11.3 [facility] Comment on above: Performed By: #### C DP, HCG, CP, LIP #### [address] [place], [place] [address]83 Track Announcer: Donte Reyes MD CMPon 02-06-2023 Albumin [Mass/Vol] 5 g/dL 3.5 - 5.2 g/dL [facility] Albumin/Globulin [Mass ratio] 1.6 {ratio} 1.0 - 2.5 [facility] ALP [Catalytic activity/Vol] 61 U/L 35 - 104 U/L [facility] ALT [Catalytic activity/Vol] 15 U/L 5 - 33 U/L [facility] Anion gap [Moles/Vol] 10 mmol/L 9 - 17 mmol/L [facility] AST [Catalytic activity/Vol] 15 U/L NINF - 32 U/L [facility] Bilirubin [Mass/Vol] 0.6 mg/dL 0.3 - 1 .2 mg/dL [facility] Calcium [Mass/Vol] 10.4 mg/dL 8.6 - 10. 4 mg/dL [facility] Chloride [Moles/Vol] 100 mmol/L 98 - 10 7 mmol/L [facility] CO2 [Moles/Vol] 28 mmol/L 20 - 31 mmol/L [facility] Creatinine [Mass/Vol] 0.69 mg/dL 0.50 - 0.90 mg/dL [facility] GFR/1.73 sq M.predicted MDRD (S/P/Bld) [Vol rate/Area] - PINF [facility] Comment on above: These results are [...] [Mass/Vol] 96 mg/dL 70 - 99 mg/dL [facility] Interpretation and review of laboratory results Abnormal [facility] Potassium [Moles/Vol] 3.5 mmol/L Low 3.7 - 5.3 mmol/L [facility] Protein [Mass/Vol] 8.1 g/dL 6.4 - 8.3 g/dL [facility] Sodium [Moles/Vol] 138 mmol/L 135 - 144 mmol/L [facility] Urea nitrogen [Mass/Vol] 12 mg/dL 6 - 20 mg/d L [facility] Urea nitrogen/Creatinine (Bld) [Mass ratio] 17 9 - 20 [facility] Comp Metabolic Profon 2022 Albumin [Mass/Vol] 5.0 g/dL Normal 3.5-5.2 [facility] Comment on above: Performed By: #### C DP, HCG, CP, LIP #### [facility] [address] [place], [place] [phone] Track Announcer: Donte Reyes MD Albumin/Glob Ratio 1.6 Normal 1.0-2.5 [facility] Comment on above: Performed By: #### C DP, HCG, CP, LIP #### [address] [place], [place] [address] Track Announcer: Donte Reyes MD Alkaline Phos 61 U/L Normal 35-104 [facility] Comment on above: Performed By: #### C DP, HCG, CP, LIP #### [address] [place], [place] [phone] Track Announcer: Donte Reyes MD ALT [Catalytic activity/Vol] 15 U/L Normal 5-33 [facility] Comment on above: Performed By: #### C DP, HCG, CP, LIP #### [address] [place], [place] 626[address]83 Track Announcer: Donte Reyes MD Anion gap [Moles/Vol] 10 mmol/L Normal 9-17 [facility] Comment on above: Performed By: #### C DP, HCG, CP, LIP #### [address] [place], [place] [address]3 Track Announcer: Donte Reyes MD AST [Catalytic activity/Vol] 15 U/L Normal <32 [facility] Comment on above: Performed By: #### C DP, HCG, CP, LIP #### [facility] [address] [place], [place] [phone] Track Announcer: Donte Reyes MD Bilirubin [Mass/Vol] 0.6 mg/dL Normal 0.3-1.2 [facility] Comment on above: Performed By: #### C DP, HCG, CP, LIP #### [facility] [address] [place], [place] [address]83 Track Announcer: Donte Reyes MD BUN/CRE Ratio 17 Normal 9-20 [facility] Comment on above: Performed By: #### C DP, HCG, CP, LIP #### [facility] [address] [place], [place] 3724[address] Track Announcer: Donte Reyes MD Calcium [Mass/Vol] 10.4 mg/dL Normal 8.6-10.4 [facility] Comment on above: Performed By: #### C DP, HCG, CP, LIP #### [facility] [address] [place], [place] [address] Track Announcer: Donte Reyes MD Chloride [Moles/Vol] 100 mmol/L Normal 98-107 [facility] Comment on above: Performed By: #### C DP, HCG, CP, LIP #### [address] [place], [place] [address]794[address] Track Announcer: Donte Reyes MD CO2 [Moles/Vol] 28 mmol/L Normal 20-31 [facility] Comment on above: Performed By: #### C DP, HCG, CP, LIP #### [facility] [address] [place], [place] [address]83 Track Announcer: Donte Reyes MD Creatinine [Mass/Vol] 0.69 mg/dL Normal 0.50-0.90 [facility] Comment on above: Performed By: #### C DP, HCG, CP, LIP #### [facility] [address] [place] [address] Track Announcer: Donte Reyes MD GFR/1.73 sq M.predicted among non-blacks MDRD (S/P/Bld) [Vol rate/Area] mL/min/{1.73_m2} Normal >60 [facility] Comment on above: Result Comment: These results [...] #### C DP, HCG, CP, LIP #### [address] [place] [address] Track Announcer: Donte Reyes MD Glucose [Mass/Vol] 96 mg/dL Normal 70-99 [facility] Comment on above: Performed By: #### C DP, HCG, CP, LIP #### [address] [place] [address] Track Announcer: Donte Reyes MD Potassium [Moles/Vol] 3.5 mmol/L Low 3.7-5.3 [facility] Comment on above: Performed By: #### C DP, HCG, CP, LIP #### [address] [place] [address] Track Announcer: Donte Reyes MD Protein [Mass/Vol] 8.1 g/dL Normal 6.4-8.3 [facility] Comment on above: Performed By: #### C DP, HCG, CP, LIP #### [address] [place] [address] Track Announcer: Donte Reyes MD Sodium [Moles/Vol] 138 mmol/L Normal 135-144 [facility] Comment on above: Performed By: #### C DP, HCG, CP, LIP #### [facility] [address] [place] [address] Track Announcer: Donte Reyes MD Urea nitrogen [Mass/Vol] 12 mg/dL Normal 6-20 [facility] Comment on above: Performed By: #### C DP, HCG, CP, LIP #### [facility] [address] [place] [address] Track Announcer: Donte Reyes MD HCG Qualitative, Serumon hCG Qual Negative NEGATIVE [facility] Comment on above: Specimens with hCG l evels near the threshold of the test (25 mIU/mL) may give a negative or indeterminate result. In such cases, another test should be performed with a new specimen in 48-72 hours. If early is suspected clinically in this setting, correlation with quantitative serum b-hCG level is suggested. [facility] has confirmed the use of plasma for this test. This has not been cleared or approved by the U.S. Food and Drug Administration. The FDA has determined that such clearance is not necessary. [facility] HCG Screen, Bloodon 02-07-20 23 HCG Screen, Blood Negative Normal NEG [facility] Comment on above: Result Comment: Spec imens with hCG levels near the threshold of the test (25 mIU/mL) may give a negative or indeterminate result. In such cases, another test should be performed with a new specimen in 48-72 hours. If early is suspected clinically in this setting, correlation with quantitative serum b-hCG level is suggested. [facility] has confirmed the use of plasma for this test. This has not been cleared or approved by the U.S. Food and Drug Administration. The FDA has determined that such clearance is not necessary. Performed By: #### C DP, HCG, CP, LIP #### [facility] [address] [place] [address] Track Announcer: Donte Reyes MD Lipaseon 02-06-2023 Lipase [Catalytic activity/Vol] 37 U/L Normal 13-60 [facility] Comment on above: Performed By: #### C DP, HCG, CP, LIP #### [facility] [address] [place] [address] Track Announcer: Donte Reyes MD Lipase [Catalytic activity/Vol] 37 U/L 13 - 60 U/L [facility] Microscopic Urinalysison Bacteria, UA TRACE Abnormal None [facility] Epithelial Cells UA 2 TO 5 [facility] Interpretation and review of laboratory results Abnormal [facility] RBC clumps Auto (Urine sed) [#/Area] 0 TO 2 [facility] WBC, UA 0 TO 2 [facility] No Panel Informationon 02-06 [facility] UA w/Reflex Cultureon 2022 Bilirubin, SemiQt,Ur Negative Normal NEG [facility] Comment on above: Performed By: #### U AX, UMICAO #### [address] [place] [address] Track Announcer: Donte Reyes MD Blood, Urine TRACE Abnormal NEG [facility] Comment on above: Performed By: #### U AX, UMICAO #### [address] [place] [address] Track Announcer: Donte Reyes MD Clarity (U) Clear Normal CLEAR [facility] Comment on above: Performed By: #### U AX, UMICAO #### [facility] [address] [place] [address] [place] [address] Track Announcer: Donte Reyes MD Color (U) Yellow Normal YEL [facility] Comment on above: Performed By: #### U AX, UMICAO #### [address] [place] [address] Track Announcer: Donte Reyes MD Glucose Ql (U) Negative Normal NEG [facility] Comment on above: Performed By: #### U AX, UMICAO #### [address] [place] [address] Track Announcer: Donte Reyes MD Ketones Ql (U) Negative Normal NEG [facility] Comment on above: Performed By: #### U AX, UMICAO #### [facility] [address] [place] [address] [place] [address] Track Announcer: Donte Reyes MD Leukocyte esterase Test strip Ql (U) Negative Normal NEG [facility] Comment on above: Performed By: #### U AX, UMICAO #### [facility] [address] [place] [address] [place] [address] Track Announcer: Donte Reyes MD Nitrite,Ur Negative Normal NEG [facility] Comment on above: Performed By: #### U AX, UMICAO #### [address] [place], [place] [id number] Track Announcer: Donte Reyes MD PH,Ur 8.0 Normal 5.0-9.0 [facility] Comment on above: Performed By: #### U AX, UMICAO #### [facility] [address] [place] [address] [place] [address] Track Announcer: Donte Reyes MD Protein Ql (U) Negative Normal NEG [facility] Comment on above: Performed By: #### U AX, UMICAO #### [facility] [address] [place] [address] Dr. [place], [place] [address] Track Announcer: Donte Reyes MD Spec. [place],Ur 1.010 Normal 1.010-1.020 [facility] Comment on above: Performed By: #### U AX, UMICAO #### [facility] [address] [place] [address] Dr. [place], [place] [id number] Track Announcer: Donte Reyes MD Urobilinogen,Ur Normal Normal NORM [facility] Comment on above: Performed By: #### U AX, UMICAO #### [facility] [address] [place] [address] [place] [address] Track Announcer: Donte Reyes MD Urinalysis with Reflex to Cu ltureon 02-06-2023 Bilirubin Urine Negative NEGATIVE [facility] Color, UA Yellow Yellow [facility] Glucose Auto test strip (U) [Mass/Vol] Negative NEGATIVE [facility] Interpretation and review of laboratory results Abnormal [facility] Ketones (U) [Mass/Vol] Negative NEGATIVE [facility] Leukocyte esterase Auto test strip Ql (U) Negative NEGATIVE [facility] Nitrite Auto test strip Ql (U) Negative NEGATIVE [facility] Protein (U) [Mass/Vol] 8.0 mg/dL 5.0 - 9.0 [facility] Protein (U) [Mass/Vol] Negative NEGATIVE [facility] Specific [place], UA 1.010 1.010 - 1.020 [facility] Turbidity UA Clear Clear [facility] Urine Hgb TRACE Abnormal NEGATIVE [facility] Urobilinogen, Urine Normal Normal [facility] Urinalysis,Microon 3 Bacteria TRACE Abnormal NONE [facility] Comment on above: Performed By: #### U LUCAS PHILLIPS #### [facility] [address] [place] [address] [place] [address] Track Announcer: Donte Reyes MD Epithelial cells LM Ql (Urine sed) 2 TO 5 Normal 0-25 [facility] Comment on above: Performed By: #### U AXYONISO #### [facility] [address] [place] [address] Track Announcer: Donte Reyes MD Urine RBC's 0 TO 2 Normal 0-2 [facility] Comment on above: Performed By: #### U AX UMICAO #### [facility] [address] [place] [address] Track Announcer: Donte Reyes MD Urine WBC's 0 TO 2 Normal 0-5 [facility] Comment on above: Performed By: #### U AX, UMGABRIELLAO #### [facility] [address] [place] [address] Track Announcer: Donte Reyes MD DHEA SERUMon 08-30-2022 Dehydroepiandrosterone (DHEA) 237 ng/dL Normal 31-[address] [facility] Comment on above: Result Comment: Age 1 [...] 701 Performed By: #### Lora WEBSTER. #### [facility] [address] [place] [address] Dr. Dashawn Sanchez DHEA-SULFATEon 08-24-2022 DHEA-Sulfate 152.0 ug/dL Normal 84.8-378.0 [facility] Comment on above: Performed By: #### Lora RICHARD #### [facility] [address] [place] [address] [address] Dashawn Sanchez FSHon 08-24-2022 FSH 7.0 mIU/mL Normal [facility] Comment on above: Result Comment: Adul t Female: Follicular phase 3.5 - 12.5 Ovulation phase 4.7 - 21.5 Luteal phase 1.7 - 7.7 Postmenopausal 25.8 - 134.8 Performed By: #### L [facility] #### [facility] [address] [place] [address] Dr. Dashawn Sanchez PROGESTERONEon 08-24-2022 Progesterone 0.1 ng/mL Normal [facility] Comment on above: Result Comment: Foll icular phase 0.1 - 0.9 Luteal phase 1.8 - 23.9 Ovulation phase 0.1 - 12.0 First trimester 11.0 - 44.3 Second trimester 25.4 - 83.3 Third trimester 58.7 - 214.0 Postmenopausal 0.0 - 0.1 Performed By: #### P KIERRA #### [facility] [address] [place] [address] Dr. Dashawn Sanchez US PELVIS AND TRANSVAGon [...] EUGENE HAY Date: 2022-08-24 08:42 Normal [facility] CBC AUTO DIFFon 08-23-2022 BASO # 0.0 103/ul Normal 0.0-0.[address] [facility] Comment on above: Performed By: #### C BC #### [facility] [address] [place] [address] Dr. Dashawn Sanchez Basophils/100 WBC (Bld) 0.5 % Normal 0.2-2.0 [facility] Comment on above: Performed By: #### C BC #### [facility] [address] [place] [address] Dr. Dashawn Sanchez EO # 0.1 103/ul Normal 0.0-0.[address] [facility] Comment on above: Performed By: #### C BC #### [facility] [address] [place] [address] Dr. Dashawn Sanchez Eosinophils/100 WBC (Bld) 1.9 % Normal 0.9-7.[address] [address] [facility] [facility] Comment on above: Performed By: #### C BC #### [facility] [address] [place] [address] Dr. Dashawn Sanchez Erythrocyte distribution width (RBC) [Ratio] 12.4 % Normal 11.0-15.[address] [facility] Comment on above: Performed By: #### C BC #### [facility] [address] [place] [address] Dr. Dashawn Sanchez Hematocrit (Bld) [Volume fraction] 40.5 % Normal 36.0-48.[address] [facility] Comment on above: Performed By: #### C BC #### [facility] [address] [place] [address] Dr. Dashawn Sanchez Hemoglobin (Bld) [Mass/Vol] 13.7 g/dL Normal 12.0-16.[address] [facility] Comment on above: Performed By: #### C BC #### [facility] [address] [place] [address] Dr. Dashawn Sanchez IG # 0.02 10e3/ul Normal 0.00-0.[address] [facility] Comment on above: Performed By: #### C BC #### [facility] [address] [place] [address] Dr. Dashawn Sanchez IG % 0.3 % Normal 0.0-0.[address] [facility] Comment on above: Performed By: #### C BC #### [facility] [address] [place] [address] Dr. Dashawn Sanchez LYMPH # 2.8 103/ul Normal 1.2-3.[address] [facility] Comment on above: Performed By: #### C BC #### [facility] [address] [place] [address] Dr. Dashawn Sanchez Lymphocytes/100 WBC (Bld) 37.1 % Normal 20.5-60.[address] [facility] Comment on above: Performed By: #### C BC #### [facility] [address] [place] [address] Dr. Dashawn Sanchez MANUAL DIFF REQ NO Normal [facility] Comment on above: Performed By: #### C BC #### [facility] [address] [place] [address] Dr. Dashawn Sanchez MCH (RBC) [Entitic mass] 29.6 pg Normal 26.7-34.[address] [facility] Comment on above: Performed By: #### C BC #### [facility] [address] [place] [address] Dr. Dashawn Sanchez MCHC (RBC) [Mass/Vol] 33.8 g/dL Normal 29.9-35.[address] [facility] Comment on above: Performed By: #### C BC #### [facility] [address] [place] [address] Dr. Dashawn Sanchez MCV (RBC) [Entitic vol] 87.5 fL Normal 81.0-99.0 [facility] Comment on above: Performed By: #### C BC #### [facility] [address] [place] [address] Dr. Dashawn Sanchez MONO # 0.3 103/ul Normal 0.3-0.[address] [facility] Comment on above: Performed By: #### C BC #### [facility] [address] [place] [address] Dr. Dashawn Sanchez Monocytes/100 WBC (Bld) 4.5 % Normal 1.7-12.0 [facility] Comment on above: Performed By: #### C BC #### [facility] [address] [place] [address] Dr. Dashawn Sanchez NEUT # 4.1 103/ul Normal 1.4-6.[address] [facility] Comment on above: Performed By: #### C BC #### [facility] [address] [place] [address] Dr. Dashawn Sanchez Neutrophils/100 WBC (Bld) 55.7 % Normal 43.0-75.[address] [facility] Comment on above: Performed By: #### C BC #### [facility] [address] [place] [address] Dr. Dashawn Sanchez Platelet mean volume (Bld) [Entitic vol] 9.6 fL Normal 9.5-13.[address] [facility] Comment on above: Performed By: #### C BC #### [facility] [address] [place] [address] Dr. Dashawn Sanchez PLT 345 103/ul Normal 150-450 [facility] Comment on above: Performed By: #### C BC #### [facility] [address] [place] [address] Dr. Dashawn Sanchez RBC 4.63 106/ul Normal 4.20-5.[address] [facility] Comment on above: Performed By: #### C BC #### [facility] [address] [place] [address] Dr. Dashawn Sanchez WBC 7.4 103/ul Normal 4.0-11.0 [facility] Comment on above: Performed By: #### C BC #### [facility] [address] [place] [address] Dr. Dashawn Sanchez FREE T4on 08-23-2022 Free T4 [Mass/Vol] 1.17 ng/dL Normal 0.76-1.46 [facility] Comment on above: Performed By: #### F T4 #### [facility] [address] [place] [address] Dr. Dashawn Sanchez GLYCOHEMOGLOBIN A1Con 2021 ADA RECOMMENDATION SEE BELOW Normal [facility] Comment on above: Result Comment: ADA RECOMMENDED LIMIT 4.0 - 6.0 ADA THERAPEUTIC TARGET < 7.0 ACTION SUGGESTED > 7.0 Performed By: #### A 1C #### [facility] [address] [place] [address] Dr. Dashawn Sanchez Glucose [Mass/Vol] 114 mg/dL Normal [facility] Comment on above: Performed By: #### A 1C #### [facility] [address] [place] [address] Dr. Dashawn Sanchez HbA1c (Bld) [Mass fraction] 5.6 % Normal 4.5-6.2 [facility] Comment on above: Performed By: #### A 1C #### [facility] [address] [place] [address] Dr. Dashawn Sanchez LDHon 08-23-2022 LDH 141 U/L Normal 81-234 [facility] Comment on above: Performed By: #### L DH, TSH #### [facility] [address] [place] [address] Dr. Dashawn Sanchez TSHon 08-23-2022 TSH 0.701 uIU/mL Normal 0.358-3.740 [facility] Comment on above: Performed By: #### L DH, TSH #### [facility] [address] [address] [address] Dashawn Sanchez TAVIA Screenon 09-06-2018 TAVIA Screen Negative Normal NEG [facility] Comment on above: Result Comment: This test was run on the [employer] TAVIA test system. The system provides ten test results (HEp-2NA, dsDNA, SSA, SSB, Sm, ELECTRONIC INSTRUMENT TRADES WORKER, Scl-70, Susana-1, Centromere and Histone analytes) from a single patient sample. A negative TAVIA screen indicates that the specimen was negative for all ten markers. Performed By: #### R A, ANASC, PADMAJA, CRP, ABC, SED, COLIN, NILS, VZI #### [address] [id number] C-Reactive Proteinon 018 CRP [Mass/Vol] 0.6 mg/L Normal 0.0-5.[address] [facility] Comment on above: Performed By: #### R A, ANASC, PADMAJA, CRP, ABC, SED, COLIN, NILS, VZI #### [facility] [address] [place] [address] [id number] Hep B Core Abon 09-06-2018 Hep B Core Ab NONREACTIVE Normal NR [facility] Comment on above: Performed By: #### R A, ANASC, PADMAJA, CRP, ABC, SED, COLIN, NILS, VZI #### [facility] [address] [place] [address] [id number] Measles (Rubeola) Imon 09-06 Measles (Rubeola) Im 4.12 Normal >1.09 [facility] Comment on above: Result Comment: Interpretation: IMMUNE Reference Range: <0.91 Not Immune 0.91-1.09 Equivocal >1.09 Immune Performed By: #### R A, ANASC, PADMAJA, CRP, ABC, SED, COLIN, NILS, VZI #### [address] [id number] Mumps,Immun,Abon 09-06-2018 Mumps,Immun,Ab 2.02 Normal >1.[address] [facility] Comment on above: Result Comment: Interpretation: IMMUNE Reference Range: <0.91 Not Immune 0.91-1.09 Equivocal >1.09 Immune Performed By: #### R A, ANASC, PADMAJA, CRP, ABC, SED, COLIN, NILS, VZI #### [address] [id number] RA Screenon 09-06-2018 RA Screen 19.3 IU/mL High <[address] [facility] Comment on above: Performed By: #### R A, ANASC, PADMAJA, CRP, ABC, SED, COLIN, NILS, VZI #### [address] [id number] Rubella Ab, IgGon 09-06-2018 Rubella Ab, IgG 31.0 IU/mL Normal [facility] Comment on above: Result Comment: REFERENCE RANGE: <5.0 NON-REACTIVE (non-immune) 5.0 TO 9.9 EQUIVOCAL >=10.0 REACTIVE (immune) Performed By: #### R A, ANASC, PADMAJA, CRP, ABC, SED, COLIN, NILS, VZI #### [address] [id number] Sedimentation Rateon 018 Sedimentation Rate 4 mm Normal 0-[address] [facility] Comment on above: Performed By: #### R A, ANASC, PADMAJA, CRP, ABC, SED, COLIN, NILS, VZI #### [address] [address] VZ Immunityon 09-06-2018 VZ Immunity 2.27 Normal >1.[address] [facility] Comment on above: Result Comment: Interpretation: IMMUNE Reference Range: <0.91 Not Immune 0.91-1.09 Equivocal >1.09 Immune Performed By: #### R A, ANASC, PADMAJA, CRP, ABC, SED, COLIN, NILS, VZI #### [facility] [employer] [address] [place] [address] Vital Signs Date Time Vital Sign Value Performing Clinician Facility 02-07-2023 00:03-0400 Body temperature 97.9 [degF] Cookie Carroll DO [facility] 02-07-2023 00:03-0400 Diastolic blood pressure 70 mm[Hg] Cookie Carroll DO Work Phone: [facility] [employer] 02-07-2023 00:03-0400 Heart rate 60 /min Cookie Carroll DO Work [facility] 02-07-2023 00:03-0400 Respiratory rate 20 /min Cookie Carroll DO Work [facility] 02-07-2023 00:03-0400 Systolic blood pressure 116 mm[Hg] Cookie Carroll DO [facility] 02-06-2023 22:30-0400 SaO2% (BldA) [Mass fraction] 97 % Cookie Carroll DO Work Phone: [facility] [employer] 09-17-2019 15:19-0500 BMI (Body Mass Index) 27.8 kg/m2 [facility] Work Phone: 09-17-2019 15:19-0500 Body Temperature 98.7 [degF] [facility] Work Phone: 09-17-2019 15:19-0500 Body weight 69.06 kg [facility] Work Phone: 09-17-2019 15:19-0500 BP Diastolic 68 mm[Hg] [facility] Work Phone: 09-17-2019 15:19-0500 BP Systolic 108 mm[Hg] Rachel Nye [facility] Work Phone: 09-17-2019 15:19-0500 BSA (Body Surface Area) 1.7 m2 Rachel Aguilar [facility] Work Phone: 09-17-2019 15:19-0500 Flow Rate 0 L/min Rachel [facility] Work Phone: 09-17-2019 15:19-0500 Height 157.48 cm [facility] Work Phone: 09-17-2019 15:19-0500 Inhaled Oxygen Concentration 21 % [facility] Work Phone: 09-17-2019 15:19-0500 Pulse (Heart Rate) 87 /min Rachel [place] [facility] Work Phone: 09-17-2019 15:19-0500 Pulse Oximetry 98 % [facility] Work Phone: 09-17-2019 15:19-0500 Respiratory Rate 18 /min [facility] Work Phone: Encounters Encounter Date Encounter Type Care Provider Facility Start: 02-06-2023 End: 02-07-2023 Emergency department patient visit COOKIE CARROLL [facility] Start: 02-06-2023 End: 02-07-2023 [facility] ED Comment on above: Acute superficial ga stritis without hemorrhage (Primary Dx) Start: 08-23-2022 End: 08-24-[address] BUSHRA MATHUR Facility:[facility] Start: 09-17-2019 End: 09-17-2019 Established patient Rachel Aguilar Work Phone: [facility] Work Phone: Start: 09-05-2018 End: 09-06-2018 Patient encounter procedure RACHEL AGUILAR [facility] Procedures Date Procedure Procedure Detail Performing [...] DTaP/Tdap/Td vaccine (9 - Td or Tdap) [employer] Start: 05-01-2023 Influenza vaccination Flu vacc ine (Season Ended) [employer] Start: 2020 Screening for malign ant neoplasm of cervix [facility] Start: 03-13-2019 Screening for malign ant neoplasm of cervix Pap smear [facility] [employer] Start: 2008 Hepatitis C screening Hepatitis C sc reen [facility] Start: 2002 Depression Screen Depression Screen [facility] Start: 1991 Varicella vaccine (1 of 2 - 2-dose childhood series) Varicella vaccine (1 of 2 - 2-dose childhood series) [facility] Start: 05-01-1991 COVID-19 Vaccine (#1) COVID-19 Vacci ne (#1) [facility]BDOMEN PELVIS W IV CONTRAST Additional Contrast? None CT ABDOMEN PELVIS W IV CONTRAST Additional Contrast? None Imaging STAT 02/06/2023 9:45 PM EDT [facility] Work Phone: Immunizations Immunization Date Immunization Notes Care Provider Tete saldana 07-11-2016 tetanus toxoid, redu madhu diphtheria toxoid, and acellular pertussis vaccine, adsorbed Cookie Carroll DO Work Phone: [facility] Payers Date Payer Category Payer Unknown [id number] 1990 Unknown [id number] 1990 Unknown [id number] 1959 Unknown [id number] Social History Date Type Detail Facility Assertion [facility] Work Phone: Assertion Alcohol consumpt ion screening (procedure) [facility] Work Phone: Assertion Gender identity finding (finding) [facility] Work Phone: Assertion Finding of sexua l orientation (finding) [facility] Work Phone: Tobacco smoking status Unknown if ever smoked [facility] Work Phone: Start: 02-03-2017 Tobacco smoking status NHIS Smokes tobacco daily [facility] History of tobacco use Cigarette Smoker [facility] Work Phone: Start: 02-03-2017 End: 03-01-2017 Cigarettes smoked current (pack per day) - Reported 0.5 [employer] Phone: Start: 02-03-2017 Tobacco use and exposure Smokeless tobacco non-user [employer] Phone: Start: 03-01-2017 Alcohol intake Current drinke r of alcohol (finding) [employer] Phone: Start: 10-28-2013 Alcohol Comment rarely [employer] Phone: Start: 1990 Sex Assigned At Not on file B ON [employer] Phone: NEGATED: Highlighted row Assertion Illicit drug use (finding) [facility] Work Phone: NEGATED: Highlighted row Assertion Misuse of prescription only drugs (finding) [facility] [employer] [facility] Work Phone: NEGATED: Highlighted row Assertion She has not had 4 or more drinks in a day within the past year. [facility] [employer] [facility] Work Phone: NEGATED: Highlighted row Assertion Exposure to pollution (event) [facility] Work Phone: NEGATED: Highlighted row Assertion Tobacco user (finding) [facility] Work Phone: Mental Status Date Assessment Result Facility Cognitive function Oriented to t almas, place, and person Oriented to person time and place (finding) [facility] Work Phone: Hospital Discharge instructions 02-06-2023 Discharge [...] attachments cannot be sent through Care Everywhere.Gastritis (Congolese)documented in this encounter [facility] [employer] Phone: Evaluation note Note Date & Type Note Facility Evaluation note Diagnosis Acute superficial gastritis without hemorrhage- Primary documented in this encounter [facility] [employer] Phone: Summary Purpose Family History No Family [...] dermatitis Medical Established Patient with Rachel Aguilar [facility] 09/17/2019 Contact dermatitis of the le ft forearm Medical Established Patient with Rachel Aguilar [facility] 09/17/2019 PHQ-9: total score was 0 09/17/2019 Medi benjamin Established Patient with Rachel Aguilar [facility] 09/17/2019 Z68.27 - Body mass index (BM I) 27.0-27.9 adult Medical Established Patient with Rachel Aguilar [facility] 09/17/2019 Instructions Instructions not supported for this [...] section and content) DATE CREATED AUTHOR 07/13/2019 [facility] DATE CREATED AUTHOR AUTHOR'S ORGANIZ ATION 08/30/2022 [facility] DATE CREATED AUTHOR AUTHOR'S ORGANIZ ATION 02/07/2023 [...] BE BASED ON THE PRIMARY CLINICAL RECORDS. [facility] [employer] [facility]. provides no warranty or guarantee of the accuracy or completeness of information in this document.
--- NOTE | 2023-09-28 09:35 | FL_ITS ---
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 TECHNIQUE: Informed consent was obtained. A sterile vaginal speculum was introduced and, following cleansing of the cervix, a balloon-tipped catheter was inserted into the endometrial cavity. The procedure was then completed in the usual manner with water-soluble contrast. Standard level fluoroscopic mode of operation utilized. FINDINGS: FALLOPIAN TUBES: Slight delay in spillage of contrast from both fallopian tubes. Increased pressure caused inappropriate spillage of contrast from the fallopian tubes bilaterally. ENDOMETRIAL CAVITY: No scarring, filling defects, or dilatation. OTHER: Negative. FL/FL Hysterosal cath placement IMPRESSION: 1. Now patent bilateral fallopian tubes. Electronically authenticated by: EUGENE HAY Date: 09/28/2023 11:23
--- NOTE | 2023-09-28 09:35 | FL_ITS ---
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 TECHNIQUE: Informed consent was obtained. A sterile vaginal speculum was introduced and, following cleansing of the cervix, a balloon-tipped catheter was inserted into the endometrial cavity. The procedure was then completed in the usual manner with water-soluble contrast. Standard level fluoroscopic mode of operation utilized. FINDINGS: FALLOPIAN TUBES: Slight delay in spillage of contrast from both fallopian tubes. Increased pressure caused inappropriate spillage of contrast from the fallopian tubes bilaterally. ENDOMETRIAL CAVITY: No scarring, filling defects, or dilatation. OTHER: Negative. FL/FL hysterosalpingography IMPRESSION: 1. Now patent bilateral fallopian tubes. Electronically authenticated by: EUGENE HAY Date: 09/28/2023 11:23
--- NOTE | 2023-09-28 10:04 | SUR.PREOP ---
09/27/23 Instructed pt on procedure date, time,and lab 30 min prior to hsg. Also instructed pt on Prednisone and Diphenhydramine 13 hr prep for IV contrast allergy.
== END 2023-09-28 10:45 | disposition home or self-care (01) ==
LOC: FL 09:08
PROVIDERS: Radiology Diagnostic Radiology; Visit Provider Obstetrics & Gynecology
DX: N83.9 Noninflammatory disorder of ovary, fallopian tube and broad ligament, unspecified (principal)
CPT/HCPCS: 36415; 58340; 74740; 84702; Q9966

== ENCOUNTER 2024-01-21 12:50 | Outpatient (OUT) | payer BC, SELFPAY ==
[2024-01-22 08:11] LABS: Progesterone 8.3 ng/mL (.)
== END 2024-01-21 12:51 | disposition home or self-care (01) ==
LOC: LAB 12:54
PROVIDERS: Visit Provider Obstetrics & Gynecology
DX: N83.9 Noninflammatory disorder of ovary, fallopian tube and broad ligament, unspecified (principal)
CPT/HCPCS: 36415; 84144

== ENCOUNTER 2025-03-10 19:25 | Outpatient (REF) | payer BC, SELFPAY ==
--- OUTSIDE RECORDS SUMMARY | 2025-03-10 13:00 | XMS_ITS | Encounter Summary ---
Author Organization [facility] Address [address] [place] [address] Care Team Providers Care Wrapper Layer Name Role Phone Unavailable Primary Care Provider Unavailabl e Reason for Visit * Reason Comments Well Women Visit Encounter Details Date Type Department Care Team ([facility] Contact Info) Description 03/10/2025 1:00 PM EDT Office Visit [facility] [address] [place] [address] Nazia Smith PA [address] [facility] [address] [place], [facility]11 Well woman exam with routine gynecological exam; Wellness examination Social History Tobacco Use Types Packs/Day Years Used Date Smoking Tobacco: Never Smokeless Tobacco: Never Alcohol Use Standard Drinks/Week Comments Never 0 (1 standard drink = 0.6 oz pur e alcohol) Comments No Sex and Gender Information Value Date Recorded Sex Assigned at Female 01/21/2024 8:26 PM EDT Legal Sex Female 11:47 PM EDT Gender Identity Female 05/28/2023 12:18 PM EDT Sexual Orientation Not on file documented as of this encounter Last Filed Vital Signs Vital Sign Reading Time Taken Comments Blood Pressure 108/68 03/10/2025 1:17 PM EDT Pulse - - Temperature - - Respiratory Rate - - Oxygen Saturation - - Inhaled Oxygen Concentration - - Weight 53.6 kg (118 lb 1.9 oz) 03/10/2025 1:17 P M EDT Height - - Body Mass Index 20.92 09/12/2022 12:00 PM EST documented in this encounter Progress Notes * LAURA Nelson - 03/10/2025 1:00 PM EDT Reason for Appointment: Patient ID: Dana Linda is a 34 y.o. female who presents for Well Women Visit Patient presents today for Annual Exam. MEDICATIONS No current outpatient medications ALLERGIES Allergies Allergen Reactions Iodides Hives Banana Flavoring Agent (Non-Screening) Unknown Latex Unknown Iodinated Contrast Media Hives, Rash and Unknown PROBLEMS Active Ambulatory Problems Diagnosis Date Noted No Active Ambulatory Problems Resolved Ambulatory Problems Diagnosis Date Noted No Resolved Ambulatory Problems Past Medical History: Diagnosis Date Blood type, Rh negative Hx of chlamydia infection IMB (intermenstrual bleeding) PCOS (polycystic ovarian syndrome) HISTORY PAST MEDICAL HISTORY SOCIAL HISTORY Past Medical History: Diagnosis Date Blood type, Rh negative Hx of chlamydia infection IMB (intermenstrual bleeding) PCOS (polycystic ovarian syndrome) Social History Tobacco Use Smoking status: Never Smokeless tobacco: Never Substance Use Topics Alcohol use: Never Drug use: Never FAMILY HISTORY Family History Problem Relation Name Age of Onset Cancer Maternal Grandmother Hypertension Paternal Grandmother Cancer Paternal Grandfather SURGICAL HISTORY Past Surgical History: Procedure Laterality Date DILATION AND CURETTAGE PAP SMEAR 01/08/2019 PELVIC LAPAROSCOPY REVIEW OF SYSTEMS Review of Systems: Review of Systems All other systems reviewed and are negative. OBJECTIVE Objective: Physical Exam Constitutional: Appearance: Normal appearance. She is well-developed. Genitourinary: Vulva normal. Right Adnexa: not tender and no mass present. Left Adnexa: not tender and no mass present. No cervical discharge. Breasts: Breasts are soft. Right: Normal. Left: Normal. HENT: Head: Normocephalic. Nose: Nose normal. Mouth/Throat: Mouth: Mucous membranes are moist. Cardiovascular: Rate and Rhythm: Normal rate and regular rhythm. Pulmonary: Effort: Pulmonary effort is normal. Breath sounds: Normal breath sounds. Abdominal: General: Bowel sounds are normal. There is no distension. Palpations: Abdomen is soft. Tenderness: There is no abdominal tenderness. There is no guarding or rebound. Musculoskeletal: General: No swelling. Normal range of motion. Cervical back: Normal range of motion. Right lower leg: No edema. Left lower leg: No edema. Neurological: General: No focal deficit present. Mental Status: She is alert and oriented to person, place, and time. Skin: General: Skin is warm and dry. Psychiatric: Mood and Affect: Mood normal. Behavior: Behavior normal. Vitals and nursing note reviewed. Exam conducted with a merchant miller present. Vitals: Estimated body mass index is 20.92 kg/m?? as calculated from the following: Height as of 22: 5' 3 . Weight as of this encounter: 118 lb 1.9 oz. BP: 108/68 No LMP recorded. ASSESSMENT & PLAN ICD-10-CM 1. Well woman exam with routine gynecological exam Z01.419 Pap Smear HPV DNA probe, amplified Annual Exam: Patient presents today for an annual exam. Patient states she is doing well and has no complaints. Pap was obtained without difficulty. Orders Placed This Encounter Procedures HPV DNA probe, amplified Follow Up: Patient is to return in one year for annual unless needed otherwise. Documented by Rubia Vargas LPN on behalf of: LAURA Nelson documented in this encounter Plan of Treatment Upcoming Encounters Date Type Department Care Team (Late st Contact Info) Description 03/15/2026 2:00 PM EDT Office Visit [facility] [address] [place] [phone] Nazia Smith PA [address] [place] [address] Scheduled Orders Name Type Priority Associated Diagnoses Orde r Schedule Pap Smear Pathology and Cytology Routine Well woman exam with routine gynecological exam Ordered: 03/10/2025 HPV DNA probe, amplified Microbiology Routine Well woman exam with routine gynecological exam Ordered: 03/10/2025 Hemoglobin A1c Lab Routine Wellness examination Ordered: 03/10/2025 CBC auto differential Lab Routine Wellness examination Ordered: 03/10/2025 TSH Lab Routine Wellness examination Ordered: 03/10/2025 Cholesterol, total Lab Routine Wellness examination Ordered: 03/10/2025 Comprehensive metabolic panel Lab Routine Wellness examination Ordered: 03/10/2025 Uric acid Lab Routine Wellness examination Ordered: 03/10/2025 documented as of this encounter Visit Diagnoses Diagnosis Well woman exam with routine gynecological exam Routine gynecological examination Wellness examination documented in this encounter
--- OUTSIDE RECORDS SUMMARY | 2025-03-10 19:29 | XMS_ITS | Encounter Summary ---
Author Organization [facility] Address [address] [place] [address] Care Team Providers Care Entertainment Director Name Role Phone Unavailable Primary Care Provider Unavailabl e Encounter Details Date Type Department Care Team (Late Contact Info) Description 09/28/2023 Clinisync Result Encounter [facility] External Department Unsolicited Bushra Manley DO [address] [place], [place] [address] Social History Tobacco Use Types Packs/Day Years Used Date Smoking Tobacco: Never Smokeless Tobacco: Never Alcohol Use Standard Drinks/Week Comments Never 0 (1 standard drink = 0.6 oz pur e alcohol) Comments Unknown Sex and Gender Information Value Date Recorded Sex Assigned at Female 01/21/2024 8:26 PM EDT Legal Sex Female 11:47 PM EDT Gender Identity Female 05/28/2023 12:18 PM EDT Sexual Orientation Not on file documented as of this encounter Plan of Treatment Upcoming Encounters Date Type Department Care Team (Late Contact Info) Description 03/15/2026 2:00 PM EDT Office Visit [facility] [address] [facility] [place] [phone] Nazia Smith PA [address] [place] [address] documented as of this encounter Procedures Procedure Name Priority Date/Time Associated Diagnosis Comments FL HYSTEROSALPINGOGRAM 3 11:23 AM EST documented in this encounter Results * FL HYSTEROSALPINGOGRAM (09/28/2023 11:23 AM EST) Anatomical Region Laterality Modality Other 09/28/2023 11:2 3 AM EST Narrative 09/28/2023 11:25 [place] [address] Fluoroscopy Report Signed Patient: HARSHA LIAO MR#: [id number] : 1990 Acct:[id number] Age/Sex: 32 / F ADM Date: 09/28/23 Loc: [place] Attending Dr: Bushra Manley D.O. Ordering Physician: Bushra Manley D.O. 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 TECHNIQUE: Informed consent was obtained. A sterile vaginal speculum was introduced and, following cleansing of the cervix, a balloon-tipped catheter was inserted into the endometrial cavity. The procedure was then completed in the usual manner with water-soluble contrast. Standard level fluoroscopic mode of operation utilized. FINDINGS: FALLOPIAN TUBES: Slight delay in spillage of contrast from both fallopian tubes. Increased pressure caused inappropriate spillage of contrast from the fallopian tubes bilaterally. ENDOMETRIAL CAVITY: No scarring, filling defects, or dilatation. OTHER: Negative. FL/FL Hysterosal cath placement IMPRESSION: 1. Now patent bilateral fallopian tubes. Electronically authenticated by: STEVEN RUGGIERO Date: 09/28/2023 11:23 Dictated By: Steven Ruggiero M.D. Signed By: 09/28/23 1125 DD/ 112 TD/TT: Reading Specialist: Procedure Note Radiology, Radiologist, - 09/28/2023 [place] [address] Fluoroscopy Report Signed Patient: HARSHA LIAO AMR#: [id number] : 1990Acct:[id number] Age/Sex: 32 / FADM Date: 09/28/23 Loc: [place] Attending Dr: Bushra Manley D.O. Ordering Physician: Bushra Manley D.O. 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 TECHNIQUE: Informed consent was obtained. A sterile vaginal speculum was introduced and, following cleansing of the cervix, a balloon-tippedcatheter was inserted into the endometrial cavity. The procedure was then completedin the usual manner with water-soluble contrast. Standard level fluoroscopicmode of operation utilized. FINDINGS: FALLOPIAN TUBES: Slight delay in spillage of contrast from both fallopian tubes. Increased pressure caused inappropriate spillage of contrast fromthe fallopian tubes bilaterally. ENDOMETRIAL CAVITY: No scarring, filling defects, or dilatation. OTHER: Negative. FL/FL Hysterosal cath placement IMPRESSION: 1. Now patent bilateral fallopian tubes. Electronically authenticated by: STEVEN RUGGIERO Date: 09/28/2023 11:23 Dictated By: Steven Ruggiero M.D. Signed By:09/28/23 1125 DD/ 1123 TD/TT: Reading Specialist: us Bushra Manley DO [facility] Final Result documented in this encounter Visit Diagnoses Not on filedocumented in this encounter
--- OUTSIDE RECORDS SUMMARY | 2025-03-10 19:29 | XMS_ITS | Clinical Summary ---
Author Organization [facility] Address [address] [place] [address] Care Team Providers Care Slot Editor Name Role Phone Unavailable Primary Care Provider Unavailabl e Allergies Active Allergy Reactions Criticality Noted Date Comments Banana Flavoring Agent (Non-Screening) Unknown 05/28/2023 Iodides Hives High 02/16/2016 Iodinated Contrast Media Hives,Rash,Unknown Low Latex Unknown 05/28/2023 Medications predniSONE (Deltasone) 50 MG tabletIndicatio ns:Irregular menstrual cycle,Fallopian tube disorder Take 1 tablet PO 13 hours prior to procedure; take 2nd dose PO 7 hours prior to procedure and take 3rd dose PO 1 hour prior to procedure. 3 tablet 3 03/10/20 25 Discontinu ed(Other) diphenhydrAMINE (Benadryl Allergy) 25 MG tabletIndicatio ns:Irregular menstrual cycle,Fallopian tube disorder Take 2 tablets PO 1 hour prior to procedure. 2 tablet 3 03/10/20 25 Discontinu ed(Other) medroxyPROGESTE Navarro (Provera) 10 MG tabletIndicatio ns:Irregular menstrual cycle,Fallopian tube disorder Take 1 tablet (10 mg) by mouth Daily for 10 days 10 tablet 4 03/10/20 25 Discontinu ed(Other) Encounters Date Type Department Care Team Description 03/10/2025 1:00 PM EDT Office Visit [facility] [address] [facility] [place] [phone] Nazia Smith PA Well woman exam with routine gynecological exam; Wellness examination 03/10/2025 Bamboo flowsheet [facility] OB [address] [facility] [place] [address] Nazia Smith PA from Last 3 Months Family History Medical History Relation Name Comments Cancer Maternal Grandmother Cancer Paternal Grandfather Hypertension Paternal Grandmother Relation Name Status Comments Daughter Alive Father Alive Maternal Grandfather Maternal Grandmother Mother Alive Paternal Grandfather Paternal Grandmother Sibling Alive Social History Tobacco Use Types Packs/Day Years Used Date Smoking Tobacco: Never Smokeless Tobacco: Never Tobacco Cessation:Counseling Given: Not Answered Alcohol Use Standard Drinks/Week Comments Never 0 (1 standard drink = 0.6 oz pur e alcohol) Comments No Sex and Gender Information Value Date Recorded Sex Assigned at Female 01/21/2024 8:26 PM EDT Legal Sex Female 11:47 PM EDT Gender Identity Female 05/28/2023 12:18 PM EDT Sexual Orientation Not on file Last Filed Vital Signs Vital Sign Reading Time Taken Comments Blood Pressure 108/68 03/10/2025 1:17 PM EDT Pulse - - Temperature - - Respiratory Rate - - Oxygen Saturation - - Inhaled Oxygen Concentration - - Weight 53.6 kg (118 lb 1.9 oz) 03/10/2025 1:17 P M EDT Height 160 cm (5' 3 ) 09/12/2022 12:00 PM EST Body Mass Index 20.92 09/12/2022 12:00 PM EST Plan of Treatment Upcoming Encounters Date Type Department Care Team (Late st Contact Info) Description 03/15/2026 2:00 PM EDT Office Visit [facility] OB [address] [place] [address] [place] [address] Nazia Smith PA [address] [place] [address] [place], [place] [id number] Insurance [facility]
--- OUTSIDE RECORDS SUMMARY | 2025-03-10 19:29 | XMS_ITS | Encounter Summary ---
Author Organization [facility] Address [address] [place] [address] Care Team Providers Care Road Monkey Name Role Phone Unavailable Primary Care Provider Unavailabl e Encounter Details Date Type Department Care Team (Late Contact Info) Description 03/10/2025 Bamboo flowsheet [facility] OB [address] [facility] [place] [address] Nazia Smith, PA [address] [place] [address] Dr [place], [place] [address] Social History Tobacco Use Types Packs/Day Years [...] 03/15/2026 2:00 PM EDT Office Visit [facility] OB [address] [facility] [place] [address] Nazia Smith, PA [address] [place] [address] Dr [place], [facility]11 documented as of this encounter Visit Diagnoses Not on filedocumented in this encounter
--- OUTSIDE RECORDS SUMMARY | 2025-03-10 19:29 | XMS_ITS | Clinical Summary ---
Author Organization [facility] Address [address] [place] [address] Care Team Providers Care Bundle Wrapper Name Role Phone Unavailable Primary Care Provider Unavailabl e Allergies Active Allergy Reactions Criticality Noted Date Comments Iodides Hives High 02/16/2016 Medications SUMAtriptan (IMITREX) 50 MG tablet Take 1 tablet by mouth once as needed for Migraine 9 tablet 3 7 Active sertraline (ZOLOFT) 25 MG tabletIndication s:Depression complicating in second trimester, antepartum,16 weeks gestation of Take 1 tablet by mouth daily 30 tablet 3 7 Active Additional Information Patient not taking.Reported on 02/06/2023 ibuprofen (ADVIL;MOTRIN) 800 MG tablet Take 1 tablet by mouth every 8 hours as needed for Pain 30 tablet 7 Active Additional Information Patient not taking.Reported on 02/06/2023 ferrous sulfate 325 (65 FE) MG tablet take 1 tablet by mouth twice a day 0 7 Active omeprazole (PRILOSEC) 20 MG delayed release capsule Take 1 capsule by mouth 2 times daily (before meals) 60 capsule 3 Active Active Problems Problem Noted Date Diagnosed Date 02/04/17 previable F 02/04/2017 Suspected Chorioamnionitis 02/04/2017 S/P D&C 02/04/17 02/04/2017 Overview (02/04/2017): For retained placenta of previable PTD at 21w4d Rh-/RI/GBSunk 02/03/2017 contractions 02/03/2017 Smoker 02/03/2017 Marijuana use 02/03/2017 Vaginal bleeding before 22 weeks gestation 02/03 Intractable vomiting without nausea 21 weeks gestation of Retained placenta parts or membranes, Resolved Problems Problem Noted Date Diagnosed Date Resolved Date Rh negative 10/30/2016 02/15/2017 Overview (02/03/2017): Rhogam given @ 7wks and 21w3d Spotting during in first trimester 7 02/15/2017 Immunizations Immunization Administration Dates Next Due TDaP, ADACEL (age 10y-64y), BOOSTRIX (age 10y+), IM, 0.5mL 07/11/2016 Family History Medical History Relation Name Comments High Cholesterol Father Hypertension Father Cancer Maternal Grandmother breast Diabetes Paternal Grandfather IDDM Rheum Arthritis Paternal Grandfather High Cholesterol Paternal Grandmother Hypertension Paternal Grandmother Relation Name Status Comments Brother 1 Alive Brother 2 Alive Brother 3 Alive Father Alive Maternal Grandfather Maternal Grandmother Mother Alive Paternal Grandfather Paternal Grandmother Alive Sister Alive Social History Tobacco Use Types Packs/Day Years Used Date Smoking Tobacco: Every Day Cigarettes Smokeless Tobacco: Never Tobacco Cessation:Ready to Q uit: No; Counseling Given: Yes Alcohol Use Standard Drinks/Week Comments Yes 0 (1 standard drink = 0.6 oz pur e alcohol) rarely Comments No Sex and Gender Information Value Date Recorded Sex Assigned at Not on file Legal Sex Female 1:17 PM EST Gender Identity Not on file Sexual Orientation Not on file Last Filed Vital Signs Vital Sign Reading Time Taken Comments Blood Pressure 116/70 02/07/2023 12:03 AM EDT Pulse 60 02/07/2023 12:03 AM EDT Temperature 36.6 C (97.9 F) 02/07/2023 12:03 AM EDT Respiratory Rate 20 02/07/2023 12:0 3 AM EDT Oxygen Saturation 97% 02/06/2023 10: 30 PM EDT Inhaled Oxygen Concentration - - Weight 52.1 kg (114 lb 12.8 oz) 017 11:59 AM EDT Height 162.6 cm (5' 4 ) 03/01/2017 11:5 9 AM EDT Body Mass Index 19.71 03/01/2017 11:59 AM EDT Plan of Treatment Health Maintenance Due Date Last Done Comments Depression Screen 2002 Varicella vaccine (1 of 2 - 13+ 2-dose series) 2003 Hepatitis C screen 2008 Pneumococcal 0-49 years Vaccine (1 of 2 - PCV) 2009 Pap smear 03/13/2019 03/13/2016, 01/29, 10/28/2013 Cervical cancer screen 2020 HPV (without or with Pap) 2020 COVID-19 Vaccine ( season) 2024 Flu vaccine (Season Ended) 2025 08/28/2018 DTaP/Tdap/Td vaccine (9 - Td or Tdap) 08/28/2028 08/28/2018, 07/11/2016, 06/11/2008, Additional history exists Hib vaccine Completed 06/30/1993, 01/30, 09/18/1991 Polio vaccine Completed 03/05/1996, 06/03, 07/17/1991, Additional history exists Hepatitis B vaccine Completed 01/01/2003, 07/24/2002, 05/29/2002 Meningococcal (ACWY) vaccine Completed 06/11/2008 HIV screen Completed 10/25/2016, 03/01 (Postponed) HPV vaccine Aged Out No longer eligi ble based on patient's age to complete this topic Hepatitis A vaccine Aged Out No longe r eligible based on patient's age to complete this topic Meningococcal B vaccine Aged Out No l onger eligible based on patient's age to complete this topic Procedures Procedure Name Priority Date/Time Associated Diagnosis Comments HIV SCREEN Routine 10/25/2016 10:49 AM EST Amenorrhea Threatened in early Vaginal bleeding during , antepartum 6 weeks gestation of 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 If acute HIV infection is suspected, consider testing for HIV-1 RNA. This is an FDA approved immunoassay that detects HIV-1 and HIV-2 antibodies and HIV-1 p24 antigen to screen for infection with HIV-1 or HIV-2. Performed at [facility] [address] [place] [id number] ([phone] BLOOD SPECIMEN / Unknown 10/25/2016 10:49 AM EST 10/25/2016 10:49 AM EST Inés Ac AUTOMATIC HEAD SAWYER - CNM IMMUNOLOGY ORDERABLES Final Result [facility] [address] [place], [place] [address] [phone] [facility] * GAUGE OPERATOR Cytology (03/13/2016 9:45 AM EDT) Cytology Report (NOTE) [id number] [facility] ANATOMIC PATHOLOGY [address] [place] [phone] GYNECOLOGIC CYTOLOGY REPORT Patient Name: HARSHA VILLASENOR MR#: [id number] Specimen #[id number] Source: 1: Cervical material, (ThinPrep vial, Imaging-assisted review) Clinical History Z01.419 Routine 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 - Endocervical/trans formation zone component present. Descriptive Diagnosis: Negative for intraepithelial lesion or malignancy. Shift in agustin suggestive of bacterial vaginosis. Projector Booth Operator: SOL Cassidy(ASCP) Electronically Signed Out scottie/03/29/2016 03/29/2016 12:00 AM EDT [facility] 03/13/2016 9:45 AM EDT 03/15/2016 9:45 AM EDT Inés Dang Osorio AUTOMATIC HEAD SAWYER - CNM PATHOLOGY/CYTOLOGY OR DERABLES Final Result [facility] [address] [place] [address], [facility] [phone] from Last 3 Months or Most Recently Relevant to Health Maintenance Insurance [facility] [employer] Advance Directives * Full Code (Latest Code Status on File) Date Activated Date Inactivated Comments 02/03/2017 6:11 AM 02/05/2017 1:07 PM * Full Code Date Activated Date Inactivated Comments 02/03/2017 4:37 AM 02/03/2017 6:11 AM * Full Code Date Activated Date Inactivated Comments 12/21/2016 7:14 PM 12/22/2016 8:29 PM
--- OUTSIDE RECORDS SUMMARY | 2025-03-10 19:29 | XMS_ITS | Encounter Summary ---
Author Organization [facility] Address [address] [place] [address] Care Team Providers Care Spool Hauler Name Role Phone Unavailable Primary Care Provider Unavailabl e Encounter Details Date Type Department Care Team (Late Contact Info) Description 09/28/2023 Clinisync Result Encounter [facility] External Department Unsolicited Bushra Manley DO [address], [place] [address] Social History Tobacco Use Types Packs/Day Years [...] EDT Office Visit [facility] [address] [place] [phone] Nazia Smith PA [address] [place] [address] documented as of this encounter Procedures Procedure Name Priority Date/Time Associated Diagnosis Comments FL HYSTEROSALPINGOGRAPHY 023 11:23 AM EST documented in this encounter Results * FL HYSTEROSALPINGOGRAPHY (09/28/2023 11:23 AM EST) Anatomical Region Laterality Modality Other 09/28/2023 11:2 3 AM EST Narrative 09/28/2023 11:25 [place] [address] Fluoroscopy Report Signed Patient: HARSHA LIAO MR#: [id number] : 1990 Acct:[id number] Age/Sex: 32 / F ADM Date: 09/28/23 Loc: [place] Attending Dr: Bushra Manley D.O. Ordering Physician: Bushra Manley D.O. Date of Service: 09/28/23 Procedure(s): FL hysterosalpingography Accession Number(s): [id number] cc: Bushra Manley D.O.; Physician,Non-Staff M.DDoug [place] [address] Patient Name: HARSHA LIAO MRN: [id number] date: 1990 Sex: F Assigned Patient Location: [place] Current Patient Location: Accession/Order Number: [id number] Exam Date: 09/28/2023 09:50 Report Date: 09/28/2023 11:23 At the request of: BUSHRA MANLEY Procedure: FL hysterosalpingography EXAMINATION: FL hysterosalpingography, FL Hysterosal cath placement [...] filling defects, or dilatation. OTHER: Negative. FL/FL hysterosalpingography IMPRESSION: 1. Now patent bilateral fallopian tubes. Electronically authenticated by: STEVEN RUGGIERO Date: 09/28/2023 11:23 Dictated By: Steven Ruggiero M.D. Signed By: 09/28/23 1125 DD/ 112 TD/TT: Quality Eng: Procedure Note Radiology, Radiologist, - 09/28/2023 [place] [address] Fluoroscopy Report Signed Patient: HARSHA LIAO AMR#: [id number] : 1990Acct:[id number] Age/Sex: 32 / FADM Date: 09/28/23 Loc: [place] Attending Dr: Bushra Manley D.O. Ordering Physician: Bushra Manley D.O. Date of Service: 09/28/23 Procedure(s): FL hysterosalpingography Accession Number(s): [id number] cc: Bushra Manley D.O.; Physician,Non-Staff Prem The [place] [address] Patient Name: HARSHA LIAO MRN: [id number] date: 1990 Sex: F Assigned Patient Location: [place] Current Patient Location: Accession/Order Number: [id number] Exam Date: 09/28/2023 09:50 Report Date: 09/28/2023 11:23 At the request of: BUSHRA MANLEY Procedure: FL hysterosalpingography EXAMINATION: FL hysterosalpingography, FL Hysterosal cath placement [...] filling defects, or dilatation. OTHER: Negative. FL/FL hysterosalpingography IMPRESSION: 1. Now patent bilateral fallopian tubes. Electronically authenticated by: STEVEN RUGGIERO Date: 09/28/2023 11:23 Dictated By: Steven Ruggiero M.D. Signed By:09/28/23 1125 DD/ 1123 TD/TT: Quality Eng: us Bushra Manley DO [facility] Final Result documented in this encounter Visit Diagnoses Not on filedocumented in this encounter
[2025-03-16 14:08] LABS: Age Gdln ACOG Testing Note (.); HPV Aptima Negative (Negative); IGP, Aptima HPV, rfx 16/18,45 Note (.)
== END 2025-03-10 19:26 | disposition home or self-care (01) ==
LOC: LAB 19:25
PROVIDERS: Visit Provider Obstetrics & Gynecology
DX: Z01.419 Encounter for gynecological examination (general) (routine) without abnormal findings (principal)
CPT/HCPCS: 87624; 88175

== ENCOUNTER 2025-06-09 09:20 | Outpatient (OUT) | payer BC, SELFPAY ==
--- NOTE | 2025-06-09 09:43 | US_ITS ---
The [place] [id number] Patient Name: HARSHA LIAO MRN: [id number] date: 1990 Sex: F Assigned Patient Location: US Current Patient Location: [place] Accession/Order Number: [id number] Exam Date: 06/09/2025 09:45 Report Date: 06/09/2025 12:04 At the request of: KELVIN ELLSWORTH MD Procedure: US thyroid THYROID ULTRASOUND COMPARISON: None CLINICAL DATA: Goiter The right thyroid lobe measures 5.2 x 1.2 x 1.5 cm. Left lobe measures 3.8 x 1.3 x 1.3 cm. The isthmus measures 1-2 mm. Echotexture is homogeneous. At the superior pole on the right, there is a superficial, ill-defined hypoechoic nodule measuring 7 x 6 x 4 mm in size. No other nodularity is seen. US/US thyroid IMPRESSION: SUBCENTIMETER RIGHT THYROID NODULE. Impression dictated by: Akiko Maurice M.D. 06/09/2025 12:04 PM Dictation Location: [place] [address] Electronically authenticated by: [id number] Y Date: 06/09/2025 12:04
== END 2025-06-09 09:21 | disposition home or self-care (01) ==
LOC: US 09:21
PROVIDERS: PCP Family Medicine; Visit Provider Family Medicine
DX: Z00.00 Encounter for general adult medical examination without abnormal findings (principal); R53.83 Other fatigue; E04.9 Nontoxic goiter, unspecified; E04.1 Nontoxic single thyroid nodule
CPT/HCPCS: 36415; 76536; 84439

== ENCOUNTER 2025-06-09 09:25 | Outpatient (OUT) | payer BC, SELFPAY ==
--- OUTSIDE RECORDS SUMMARY | 2025-06-02 05:50 | XMS_ITS | Continuity of Care Document ---
Author Organization [facility] Address [address] [place] [address] Phone Care Team Providers Care Gospel Singer Name Role Phone Elvia Pagan MD Primary Care Provider Elvia Pagan MD Attending Provider [phone] Care Teams Patient Care Team Team Status: Active Member Role Status Dates Elvia Pagan MD Primary Care Provider Active Patient Care Team Team Status: Inactive Member Role Status Dates Elvia Pagan MD Primary Care Provider Active Start: June 02, 2025 End: June 02, 2025 Elvia Pagan MD Attending Provider Active St art: June 02, 2025 End: June 02, 2025 Chief Complaint and Reason for Visit Chief Complaint Admit Date establish, wellness June 02, 2025 9:01am Reason for Visit Admit Date Enlarged thyroid gland June 02 9:01am Fatigue June 02, 2025 9:01am Allergies, Adverse Reactions, Alerts Allergen Type Severity Reaction Last Updated Verified Status ibuprofen Allergy Mild Hives June 02, 2025 9:17am Yes Active Social History Smoking Status Status Start Date End Date Date of Observa tion Smokes tobacco daily (finding) June 02, 2025 9:23am Observation Status Observation Response Date of Response Legal Sex Female (finding) Sex Assigned At Female November [id number] Status N June 02, 2025 Family History Relationship Condition Age at Onset Recorded Date/T almas maternal grandmother Malignant neoplasm Unknown paternal grandfather Diabetes mellitus Unknown Hypertension Unknown paternal grandmother High blood cholesterol Unknown Hypertension Unknown Problems Active Problems Medical Problem Onset Date Status Fatigue Unknown Active Enlarged thyroid gland Unknown Active Wellness examination Unknown Active Medications No known medications Vital Signs Vital Reading Result Reference Range Collection Date/Time Height 62.25 [in_i] June 02, 2025 9:13am Weight 52.61 kg June 02, 2025 9:13am Heart Rate 59 /min 60-100 June 02, 2025 9:13am BP Systolic 111 mm[Hg] 100-140 June 02, 2025 9:13am BP Diastolic 70 mm[Hg] 60-100 June 02, 2025 9:13am BMI (Body Mass Index) 21.0 kg/m2 Sept2024 9:13am Advance Directives Advance Directive Response Recorded Date/ Time Advance Directives No April 29 10:03am Insurance Providers Guarantor Dana Smithoughby Address [address] [place] [phone] Contact Info. Home Phone: Payer Policy Id Subscriber's Name Subscriber Id Effectiv e Date Expiration Date Yue MAGANA [id number] Dana Smithoughby [id number] Encounters Encounter Location(s) Arrival/Admit Date Discharge/Depart Date Provider(s) Departed Physician/Prov ider Office Visit -[facility] June 02, 2025 9:01am June 02, 2025 9:49am Elvia Pagan MD Recent Diagnosis Onset Date Admit Date Enlarged thyroid gland Unknown June 02, 2025 9:01am Fatigue Unknown June 02 9:01am Assessments Diagnosis Onset Date Resolution Status Admit Date Enlarged thyroid gland acute Se pt2024 9:01am Fatigue acute June 02, 2025 9:01am Plan of Treatment Future Tests Future scheduled test information is unavailable Pending Tests Test Name Ordered Date Scheduled Date US thyroid June 02, 2025 9:45am Future Visits Future appointment information is unavailable Referrals to Other Providers Referral information is unavailable Future Procedures Procedure Name Ordered Date Scheduled Date Basic Metabolic Panel June 02, 2025 9:44am Complete Blood Count Auto Diff June 02 9:44am Free T4 (Free Thyroxine) June 02, 2025 9:4 4am Thyroid Stim Hormone w/Rflx June 02, 2025 9:44am Future Medications Future medication information is unavailable Patient Instructions Patient instructions are unavailable
--- OUTSIDE RECORDS SUMMARY | 2025-06-09 09:28 | XMS_ITS | Clinical Summary ---
Author Organization [facility] Address [address], [address] [place] [address] Care Team Providers Care Correctional Therapy Director Name Role Phone Unavailable Primary Care [...] 2020 HPV (without or with Pap) 2020 Flu vaccine (#1) 05/01/2025 08/28/2018 COVID-19 Vaccine ( season) 2025 DTaP/Tdap/Td vaccine (9 - Td or Tdap) 08/28/2028 08/28/2018, 07/11/2016, 06/11/2008, Additional history exists Hib vaccine Completed 06/30/1993, 01/30, 09/18/1991 Polio vaccine Completed 03/05/1996, 06/03, 07/17/1991, Additional history exists Hepatitis B vaccine Completed 01/01/2003, 07/24/2002, 05/29/2002 Meningococcal (ACWY) vaccine Completed 06/11/2008 HIV screen Completed 10/25/2016, 03/01 (Postponed) HPV vaccine (No Doses Required) Completed Hepatitis A vaccine Aged Out No longe r eligible based on patient's age to complete this topic Meningococcal B vaccine Aged Out No l onger eligible based on patient's age to complete this topic Procedures Procedure Name Priority Date/Time Associated Diagnosis Comments HIV SCREEN Routine 10/25/2016 10:49 AM EST Amenorrhea Threatened in early Vaginal bleeding during , antepartum 6 weeks gestation of 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 Comment: No laboratory evidence of HIV infection. If acute HIV infection is suspected, consider testing for HIV-1 RNA. This is an FDA approved immunoassay that detects HIV-1 and HIV-2 antibodies and HIV-1 p24 antigen to screen for infection with HIV-1 or HIV-2. Performed at [facility] [address] [place] [address] [id number] ([phone] BLOOD SPECIMEN / Unknown 10/25/2016 10:49 AM EST 10/25/2016 10:49 AM EST Inés Ac ASSOCIATE TRAINER - CNM IMMUNOLOGY ORDERABLES Final Result [facility] [address] [place], [place] [address] [phone] 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 - Endocervical/trans formation zone component present. Descriptive Diagnosis: Negative for intraepithelial lesion or malignancy. Shift in agustin suggestive of bacterial vaginosis. Graphic Design Intern: SOL Cassidy(ASCP) Electronically Signed Out scottie/03/29/2016 03/29/2016 12:00 AM EDT [facility] 03/13/2016 9:45 AM EDT 03/15/2016 9:45 AM EDT us Inés Dang Osorio ASSOCIATE TRAINER - CNM PATHOLOGY/CYTOLOGY OR DERABLES Final Result [facility] [address] [place] [id number], [facility] [phone] from Last 3 Months or Most Recently Relevant to Health Maintenance Insurance PLAN Advance Directives * Full Code (Latest Code Status on File) Date Activated Date Inactivated Comments 02/03/2017 6:11 AM 02/05/2017 1:07 PM * Full Code Date Activated Date Inactivated Comments 02/03/2017 4:37 AM 02/03/2017 6:11 AM * Full Code Date Activated Date Inactivated Comments 12/21/2016 7:14 PM 12/22/2016 8:29 PM
[2025-06-09 09:47] LABS: Hematocrit 38.3 % (36.0-48.0); Hemoglobin 12.8 g/dL (12.0-16.0); Immature Granulocytes Abs Auto 0.02 10^3/uL (0.00-0.03); Immature Granulocytes Pct Auto 0.3 % (0.0-0.5); Lymphocytes Absolute Auto 1.9 10^3/uL (1.2-3.8); Mean Corpuscular HGB Conc 33.4 g/dL (29.9-35.2); Mean Corpuscular Hemoglobin 29.7 pg (26.7-34.0); Mean Corpuscular Volume 88.9 fL (81.0-99.0); Platelet Count 312 10^3/uL (150-450); Red Blood Count 4.31 10^6/uL (4.20-5.40); White Blood Count 6.6 10^3/uL (4.0-11.0)
[2025-06-09 10:38] LABS: Alanine Aminotransferase 17 U/L (14-59); Albumin Globulin Ratio 1.3; Albumin Level 4.3 g/dL (3.4-5.0); Alkaline Phosphatase 55 U/L (46-116); Anion Gap 14.6; Aspartate Amino Transferase 15 U/L (15-37); Blood Urea Nitrogen 11.0 mg/dL (7.0-18.0); Calcium 9.1 mg/dL (8.5-10.1); Carbon Dioxide 26.5 mmol/L (21.0-32.0); Chloride 104 mmol/L (98-107); Cholesterol 172 mg/dL (<=200); Estimated GFR (African America >60 (>=60 mL/min/1.73m^2); Estimated GFR (Non-African Ame >60 (>=60 mL/min/1.73m^2); Globulin 3.3 g/dL; Glucose 87 mg/dL (74-106); Potassium 4.1 mmol/L (3.5-5.1); Sodium 141 mmol/L (136-145); Thyroid Stimulating Hormone 0.676 uIU/mL (0.358-3.740); Total Protein 7.6 g/dL (6.4-8.2); Uric Acid 3.8 mg/dL (2.6-6.0)
== END 2025-06-09 09:26 | disposition home or self-care (01) ==
LOC: LAB 09:26
PROVIDERS: PCP Family Medicine; Visit Provider Physician Assistant
DX: Z00.00 Encounter for general adult medical examination without abnormal findings (principal); R53.83 Other fatigue; E04.9 Nontoxic goiter, unspecified; E04.1 Nontoxic single thyroid nodule
CPT/HCPCS: 36415; 76536; 80053; 82465; 83036; 84439; 84443; 84550; 85025

== ENCOUNTER 2025-09-11 13:47 | Outpatient (OUT) | payer BC, SELFPAY | END 2025-09-11 13:48 | disposition home or self-care (01) | PROVIDERS: PCP Family Medicine; Visit Provider Obstetrics & Gynecology | DX: N83.9 Noninflammatory disorder of ovary, fallopian tube and broad ligament, unspecified (principal); N97.9 Female infertility, unspecified | CPT/HCPCS: 36415; 84144 ==

== ENCOUNTER 2025-09-30 12:26 | Emergency (ER) | payer BC, SELFPAY ==
[2025-09-30 12:43] VITALS: BP 102/57; PULSE 75; TEMP 36.5; O2SAT 100; BMI 21.3
--- NOTE | 2025-09-30 12:49 | US_ITS ---
The [address] [address] Patient Name: HARSHA LIAO MRN: [id number] date: 1990 Sex: F Assigned Patient Location: ER Current Patient Location: ER Accession/Order Number: [id number] Exam Date: 09/30/2025 12:50 Report Date: 09/30/2025 13:55 At the request of: ELIOT REYNA MD Procedure: US OB transvaginal ULTRASOUND OB TRANSVAGINAL CLINICAL DATA: Left-sided pelvic pain. COMPARISON: None Transvaginal imaging was performed. No focal myometrial abnormalities are seen. The endometrial lining is estimated at 17-18 mm. No gestational sac is identified. The cervix is closed with estimated length of almost 3 cm. Both ovaries are seen. The right measures 2.6 x 2.3 x 1.9 cm. The left ovary measures 3.4 x 3.0 x 2.9 cm. There are bilateral follicles measuring up to 16 mm . One on the left is minimally complex with septation and debris. There is documentation of ovarian blood flow. A small amount of free pelvic fluid is seen. US/US OB transvaginal IMPRESSION: NO EVIDENCE OF INTRAUTERINE . FOLLOW-UP SERIAL BETA-HCG IS RECOMMENDED ALONG WITH REPEAT ULTRASOUND, WARRANTED. SMALL AMOUNT OF FREE PELVIC FLUID. Impression dictated by: Akiko Maurice M.D. 09/30/2025 1:55 PM Dictation Location: [place] [address] Electronically authenticated by: [id number] Y Date: 09/30/2025 13:55
[2025-09-30 13:21] LABS: Hematocrit 36.8 % (36.0-48.0); Hemoglobin 12.1 g/dL (12.0-16.0); Immature Granulocytes Abs Auto 0.03 10^3/uL (0.00-0.03); Immature Granulocytes Pct Auto 0.4 % (0.0-0.5); Lymphocytes Absolute Auto 2.0 10^3/uL (1.2-3.8); Mean Corpuscular HGB Conc 32.9 g/dL (29.9-35.2); Mean Corpuscular Hemoglobin 29.3 pg (26.7-34.0); Mean Corpuscular Volume 89.1 fL (81.0-99.0); Platelet Count 222 10^3/uL (150-450); Red Blood Count 4.13 10^6/uL (4.20-5.40); White Blood Count 6.7 10^3/uL (4.0-11.0)
[2025-09-30 13:45] LABS: Alanine Aminotransferase 22 U/L (14-59); Albumin Globulin Ratio 1.0; Albumin Level 3.4 g/dL (3.4-5.0); Alkaline Phosphatase 54 U/L (46-116); Anion Gap 9.1; Aspartate Amino Transferase 17 U/L (15-37); Blood Urea Nitrogen 11.0 mg/dL (7.0-18.0); Calcium 8.5 mg/dL (8.5-10.1); Carbon Dioxide 30.6 mmol/L (21.0-32.0); Chloride 103 mmol/L (98-107); Estimated GFR (African America >60 (>=60 mL/min/1.73m^2); Estimated GFR (Non-African Ame >60 (>=60 mL/min/1.73m^2); Globulin 3.5 g/dL; Glucose 73 mg/dL (74-106); Potassium 3.7 mmol/L (3.5-5.1); Sodium 139 mmol/L (136-145); Total Protein 6.9 g/dL (6.4-8.2)
--- OUTSIDE RECORDS SUMMARY | 2025-09-30 15:22 | XMS_ITS | Clinical Summary ---
Author Organization [facility] Address [address] [place] [address] Care Team Providers Care Can Reconditioner Name Role Phone Unavailable Primary Care Provider Unavailabl e Allergies Active AllergyReactionsCriticalityNoted DateCommentsBanana Flavoring Agent (Non-Screening)Fqrplwj0705/28/20232707GsgemjkdyJedrrOyr02/02/2025IodidesHivesHigh 02/16/2016Iodinated Contrast MediaHives,Rash,NssfiusIit77/23/2019LatexUnknown 05/28/2023 Medications No known medications Encounters DateTypeDepartmentCare JqwyNetgrwcyfxi07/31/2025Telephone [facility] [address] [place] [address] Rubia Vargas LPN 09/11/2025linisync Result Encounter [facility] External Department Unsolicited Hakeem Manley DO 08/24/2025Telephone [facility] [address] [place] [address] Hakeem Manley DO 08/05/2025 1:40 PM [place] [address] Hakeem Manley DO Encounter for fqfmzviocdvt77/05/2025amboo flowsheet [facility] [address] [place] [address] Hakeem Manley DO from Last 3 Months Family History Medical HistoryRelationNameCommentsCancerMaternal GrandmotherCancerPaternal GrandfatherHypertensionPaternal GrandmotherRelationNameStatusCommentsDaughter AliveFatherAliveMaternal GrandfatherDeceasedMaternal GrandmotherDeceasedMother AlivePaternal GrandfatherDeceasedPaternal GrandmotherSiblingAlive Social History Tobacco UseTypesPacks/DayYears UsedDateSmoking Tobacco: NeverSmokeless Tobacco: Never Tobacco Cessation:Counseling Given: Not Answered Alcohol UseStandard Drinks/WeekCommentsNever0 (1 standard drink = 0.6 oz pure alcohol)CommentsNoSex and Gender InformationValueDate RecordedSex Assigned at ZjrwbEcugtn98/22/2024 8:26 PM EDTLegal GhyWngjei52/15/2023 11:47 PM EDTGender KlygzwbbDkwofz96/28/2023 12:18 PM EDTSexual OrientationNot on file Last Filed Vital Signs Vital SignReadingTime TakenCommentsBlood Xgcwmicc514/6008/05/2025 1:53 PM EST Pulse--Temperature--Respiratory Rate--Oxygen Saturation--Inhaled Oxygen Concentration--Yyfqux53.7 kg (118 lb 6.4 oz)08/05/2025 1:53 PM TOFMgatbu099 cm (5' 3 )08/05/2025 1:53 PM ESTBody Mass Index20.9708/05/2025 1:53 PM EST Plan of Treatment DateTypeDepartmentCare Team (Latest Contact Info)Wziedmcxquj18/29/2026 1:30 PM ESTAncillary Procedure [facility] [address] [place] [address] 10/29/2025 2:00 PM ESTInitial [facility] [address] [place] [address] 03/15/2026 2:00 PM EDTOffice Visit [facility] [address] [place] [address] Nazia Smith PA [address] [place], [place] [id number] Procedures Procedure NamePriorityDate/TimeAssociated DiagnosisCommentsALL PROGESTERONE Ltvheyb7509/11/2025 2:03 PM EST from Last 3 Months Results * ALL PROGESTERONE (09/11/2025 2:03 PM EST)ComponentValueRef RangeTest Method Analysis TimePerformed AtPathologist SignaturePROGESTERONE0.4. ng/mLTBH Comment: ? Follicular phase ? 0.1 - ?? 0.9 ? Luteal phase ? 1.8 - ??23.9 ? Ovulation phase ?0.1 - ??12.0 ?First trimester ?11.0 - ??44.3 ?Second trimester ?? 25.4 - ??83.3 ?Third trimester ?58.7 - 214.0 ? Postmenopausal ? 0.0 - ?? 0.1 Performed at: ??CB - [facility] [place] [id number] [facility], [place], [place] [phone] Instructional Design Consultant: Edgar Sarkar PhD, Phone: ??[phone] Specimen (Source)Anatomical Location / LateralityCollection Method / Volume Collection TimeReceived Time09/11/2025 2:03 PM EST09/11/2025 2:04 PM EST Narrative [facility] - 09/12/2025 4:07 AM EST Authorizing ProviderResult TypeResult StatusCorey Vineet DOCLINISYNCFinal Result Performing OrganizationAddressCity/State/ZIP CodePhone Number [facility] from Last 3 Months Insurance
--- OUTSIDE RECORDS SUMMARY | 2025-09-30 15:22 | XMS_ITS | Clinical Summary ---
Author Organization [facility] Address [address], [address] [place] [address] Care Team Providers Care Plate Fitter Name Role Phone Unavailable Primary Care Provider Unavailabl e Allergies Active AllergyReactionsCriticalityNoted AkeuOwgqowdgCuxxipwInjsbOweh06/18/2016 Medications MedicationSigDispense QuantityRefillsLast FilledStart DateEnd DateStatus SUMAtriptan (IMITREX) 50 MG tablet Take 1 tablet by mouth once as needed for Migraine 9 tablet Active sertraline (ZOLOFT) 25 MG tablet Indications:Depression complicating in second trimester, antepartum,16 weeks gestation of pregnancyTake 1 tablet by mouth daily 30 tablet Active Additional Information Patient not taking.Reported on 02/06/2023 ibuprofen (ADVIL;MOTRIN) 800 MG tablet Take 1 tablet by mouth every 8 hours as needed for Pain 30 tablet 02/05/2017Active Additional Information Patient not taking.Reported on 02/06/2023 ferrous sulfate 325 (65 FE) MG tablet take 1 tablet by mouth twice a [id number] omeprazole (PRILOSEC) 20 MG delayed release capsule Take 1 capsule by mouth 2 times daily (before meals) 60 capsule 3Active Active Problems ProblemNoted DateDiagnosed Date02/04/17 previable F002/04/2017Suspected Vohrittzgszcflwm42/07/2017S/P D&C 02/04/1705 Overview (02/04/2017): For retained placenta of previable PTD at 21w4d Rh-/RI/EXXlpk1402/03/2017Preterm kzebzgexumsc68/06/0974Oggxqk23/06/2017Marijuana use02/03/2017Vaginal bleeding before 22 weeks mdngolwrm47/06/2017Intractable vomiting without rxyuga19 weeks gestation of pregnancyRetained placenta parts or membranes, Resolved Problems ProblemNoted DateDiagnosed DateResolved DateRh qaybhpom85 Overview (02/03/2017): Rhogam given @ 7wks and 21w3d Spotting during in first Immunizations ImmunizationAdministration DatesNext DueTDaP, ADACEL (age 10y-64y), BOOSTRIX (age 10y+), IM, 0.5mL07/11/2016 Family History Medical HistoryRelationNameCommentsHigh CholesterolFatherHypertensionFather CancerMaternal GrandmotherbreastDiabetesPaternal GrandfatherIDDMRheum Arthritis Paternal GrandfatherHigh CholesterolPaternal GrandmotherHypertensionPaternal GrandmotherRelationNameStatusCommentsBrother 1AliveBrother 2AliveBrother 3Alive FatherAliveMaternal GrandfatherDeceasedMaternal GrandmotherDeceasedMotherAlive Paternal GrandfatherDeceasedPaternal GrandmotherAliveSisterAlive Social History Tobacco UseTypesPacks/DayYears UsedDateSmoking Tobacco: Every DayCigarettes Smokeless Tobacco: Never Tobacco Cessation:Ready to Q uit: No; Counseling Given: Yes Alcohol UseStandard Drinks/WeekCommentsYes0 (1 standard drink = 0.6 oz pure alcohol)rarelyCommentsNoSex and Gender InformationValueDate RecordedSex Assigned at BirthNot on fileLegal VbfOxqxzf59/10/2013 1:17 PM ESTGender Identity Not on fileSexual OrientationNot on file Last Filed Vital Signs Vital SignReadingTime TakenCommentsBlood Ppwegldm162/7005 12:03 AM EDT Mdcpe6282/10/2023 12:03 AM XGHRayycgvwdbt34.6 ??C (97.9 ??F)02/07/2023 12:03 AM EDTRespiratory Ffkl1704 12:03 AM EDTOxygen Jmfpmcnacy59%02/06/2023 10:30 PM EDTInhaled Oxygen Concentration--Ywznzf05.1 kg (114 lb 12.8 oz)03/01/2017 11:59 AM RNJOyizka778.6 cm (5' 4 )03/01/2017 11:59 AM EDTBody Mass Index19.71 03/01/2017 11:59 AM EDT Plan of Treatment Health MaintenanceDue DateLast DoneCommentsDepression Bsvbkt3311/01/2002Varicella vaccine (1 of 2 - 13+ 2-dose series)2003Hepatitis C stafmq6011/01/2008 Pneumococcal 0-49 years Vaccine (1 of 2 - PCV)2009Pap smear03/13/2019 03/13/2016, 02/11/2015, 10/28/2013Cervical cancer pptjly1211/01/2020HPV (without or with Pap)2020Flu vaccine (#1)5110/28/2017COVID-19 Vaccine ( season)2025DTaP/Tdap/Td vaccine (9 - Td or Tdap)08/28/2028 08/28/2018, 07/11/2016, 06/11/2008, Additional history existsHib vaccine Imveiumnd40/30/1993, 02/27/1992, 09/18/1991Polio klfknqhYleebebqz21/05/1996, 06/30/1993, 07/17/1991, Additional history existsHepatitis B vaccineCompleted 01/01/2003, 07/24/2002, 05/29/2002Meningococcal (ACWY) vaccineCompleted 06/11/2008HIV lbeifcFntpndzbr82/25/2017, 03/13/2016 (Postponed)HPV vaccine (No Doses Required)CompletedHepatitis A vaccineAged OutNo longer eligible based on patient's age to complete this topicMeningococcal B vaccineAged OutNo longer eligible based on patient's age to complete this topic Procedures Procedure NamePriorityDate/TimeAssociated DiagnosisCommentsHIV SCREENRoutine 10/25/2016 10:49 AM EST Amenorrhea Threatened in early Vaginal bleeding during , antepartum 6 weeks gestation of [employer] THQGKIIMOlixrfs91/13/2016 9:45 AM EDT from Last 3 Months or Most Recently Relevant to Health Maintenance Results * HIV Screen (10/25/2016 10:49 AM EST)ComponentValueRef RangeTest MethodAnalysis TimePerformed AtPathologist SignatureHIV Ag/XmTFCZVISDQSIYE71/25/2017 9:24 PM ESTLOVELACE REHABILITATION H[facility] LABComment: ? No laboratory evidence of HIV infection. ??If acute HIV infection is suspected, consider testing for HIV-1 RNA. This is an FDA approved immunoassay that detects HIV-1 and HIV-2 antibodies and HIV-1 p24 antigen to screen for infection with HIV-1 or HIV-2. Performed at [address] [address] ([phone] Specimen (Source)Anatomical Location / LateralityCollection Method / Volume Collection TimeReceived TimeBLOOD SPECIMEN / Jehbjht5210/25/2016 10:49 AM EST 10/25/2016 10:49 AM EST Narrative Authorizing ProviderResult TypeResult StatusKathleen E Pool DEVICE ENGINEER - CNMIMMUNOLOGY ORDERABLESFinal ResultPerforming OrganizationAddressCity/State/ZIP CodePhone Number [facility] [address] [phone] [facility] * [employer] Cytology (03/13/2016 9:45 AM EDT)ComponentValueRef RangeTest Method Analysis TimePerformed AtPathologist SignatureCytology Report(NOTE) [id number] [facility] ??LABORATORIES CONSULTING PATHOLOGISTS [facility] ANATOMIC PATHOLOGY [address] [place] [address]. ??[place], [place] [address] GYNECOLOGIC CYTOLOGY REPORT Patient Name: HARSHA VILLASENOR MR#: [id number] Specimen #[id number] Source: 1: Cervical material, (ThinPrep vial, Imaging-assisted review) Clinical History Z01.419 Routine business writer exam without abnormal findings High Risk HPV DNA testing is requested if the diagnosis is ASC-US LMP: ??02/02/16 INTERPRETATION Cervical material, (ThinPrep vial, Imaging-assisted review): Specimen Adequacy: ?Satisfactory for evaluation. ?- Endocervical/transformation zone component present. Descriptive Diagnosis: ?Negative for intraepithelial lesion or malignancy. Shift in agustin suggestive of bacterial vaginosis. Telecommunications Consultant: ?? SOL Cassidy(ASCP) Electronically Signed Out scottie/03/29/2016 03/29/2016 12:00 AM [facility] LABSpec[facility] (Source) Anatomical Location / LateralityCollection Method / VolumeCollection Time Received Time03/13/2016 9:45 AM EDT03/15/2016 9:45 AM EDT Narrative Authorizing ProviderResult TypeResult StatusKatgarry Ac APRN - CNM PATHOLOGY/CYTOLOGY ORDERABLESFinal ResultPerforming OrganizationAddress City/State/ZIP CodePhone Number [facility] [address] [place] [address] from Last 3 Months or Most Recently Relevant to Health Maintenance Insurance Advance Directives * Full Code (Latest Code Status on File) Date ActivatedDate InactivatedComments02/03/2017 6:11 AM5/05/2017 1:07 PM * Full Code Date ActivatedDate InactivatedComments02/03/2017 4:37 AM02/03/2017 6:11 AM * Full Code Date ActivatedDate InactivatedComments12/21/2016 7:14 PM12/22/2016 8:29 PM
--- OUTSIDE RECORDS SUMMARY | 2025-09-30 15:22 | XMS_ITS | Encounter Summary ---
Author Organization [facility] Address [address] [place] [address] Care Team Providers Care Mimeographer Name Role Phone Unavailable Primary Care Provider Unavailabl e Encounter Details DateTypeDepartmentCare Team (Latest Contact Info)Qellgxhlfoa71/31/2025Telephone [facility] [address] [place] [address] Rubia Vargas LPN [address] [place] [id number] Social History Tobacco UseTypesPacks/DayYears UsedDateSmoking Tobacco: NeverSmokeless Tobacco: NeverAlcohol UseStandard Drinks/WeekCommentsNever0 (1 standard drink = 0.6 oz pure alcohol)CommentsNoSex and Gender InformationValueDate RecordedSex Assigned at WcreoGragju50/22/2024 8:26 PM EDTLegal IybQbqpif80/15/2023 11:47 PM EDTGender XjciriqhVhuszj25/28/2023 12:18 PM EDTSexual OrientationNot on file documented as of this encounter Miscellaneous Notes * Telephone Encounter - Rubia Vargas LPN - 09/30/2025 11:40 AM EST Pt called stating that she is newly and is having severe pain on the left side. I told herthat she needed to go get evaluated at the ER just incase it was an ectopic . PVU documented in this encounter Plan of Treatment DateTypeDepartmentCare Team (Latest Contact Info)Hoegtpndegn34/29/2026 1:30 PM ESTAncillary Procedure [facility] [address] [place] [address] [place] [phone] 10/29/2025 2:00 PM ESTInitial [facility] [address] [place] [address] [place] [phone] 03/15/2026 2:00 PM EDTOffice Visit [facility] [address] [place] [address] [place] [phone] Nazia Smith PA [address] [facility] [address] [place] [address] documented as of this encounter Visit Diagnoses Not on filedocumented in this encounter
--- NOTE | 2025-09-30 15:41 | ED.ABDPAIN1 ---
HPI - Abdominal Pain General Chief Complaint: Abdominal Pain Stated Complaint: ABDOMINAL PAIN - PREG UNSURE HOW FAR Time Seen by Provider: 09/30/25 12:49 Source: patient Mode of arrival: walk-in Limitations: no limitations History of Present Illness HPI narrative: Patient presented to the ER with a left lower abdominal pain that started over the last few days the patient is , this is her third and the all ended up with the delivery. The patient denies any spotting she denies any nausea vomiting or any other concerns She was told by her OB doctor to come to the ER to be evaluated for ectopic Last menstruation was at the end of August mostly at 27 Related Data Home Medications ?Medication ?Instructions ?Recorded ?Confirmed diphenhydramine HCl 25 mg capsule 50 mg PO ONCE 09/27/23 09/28/23 (Allergy Relief (diphenhydramine)) letrozole 2.5 mg tablet (Femara) 2.5 mg PO DAILY 09/27/23 09/28/23 prednisone 50 mg tablet 50 mg PO .COMPLEX 09/27/23 09/28/23 Allergies Allergy/AdvReac Type Severity Reaction Status Date / Time Iodinated Contrast Media Allergy hives rash Verified 09/28/23 10:03 Latex, Natural Rubber Allergy rash when Verified 09/28/23 10:03 only metformin Allergy large hives Verified 09/27/23 13:44 banana Allergy rash when Uncoded 09/28/23 10:03 Review of Systems ROS Status of ROS 10 or more systems reviewed and unremarkable except as noted in history and below [facility] Medical History (Updated 09/30/25 @ 15:42 by Carolina Cordoba MD) 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, unspecified leg (ICD-10) Arthritis ?M19.90 - Unspecified osteoarthritis, unspecified site (ICD-10) Infertility Surgical History (Updated 09/27/23 @ 13:51 by Beverly Mccord) History of dilation and curettage ?Z98.890 - Other specified postprocedural states (ICD-10) H/O exploratory laparotomy ?Z98.890 - Other specified postprocedural states (ICD-10) Social History Little interest or pleasure in doing things: not at all Feeling down, depressed, or hopeless: not at all Gender Identity: female Gender Identity Comment: Quantitative hcg ,0.1 09/28/23 Exam Narrative Exam Narrative: Nurses notes and vital signs reviewed and patient is not hypoxic. General: Well-appearing and in no apparent distress. Skin: Warm, dry, no pallor noted. No rash. Head: Normocephalic, atraumatic. Neck: Supple, non-tender. Cardiovascular: Regular Rate and Rhythm without murmur, gallop or rub. Respiratory: No accessory muscle use or respiratory distress. Lungs are clear to auscultation, no wheezing, rales or rhonchi Chest Wall: no tenderness Back: No midline thoracic or lumbar vertebral tenderness. No CVA tenderness Musculoskeletal: normal ROM, no calf or popliteal tenderness, no lower extremity edema/swelling GI: Abdomen is soft, non-distended. Normal bowel sounds. No masses appreciated. No tenderness to palpation. No rebound, guarding, or rigidity noted. Neurological: A&O x4. No cranial nerve dysfunction observed. No truncal ataxia. Moves all extremities. Sensation intact. Psychiatric: Cooperative and interactive. Normal mood and affect. Constitutional Vital Signs, click to edit/add: Last Vital Signs Temp 97.7 F 09/30/25 12:43 Pulse 75 09/30/25 12:43 Resp 18 09/30/25 12:43 BP 102/57 09/30/25 12:43 Pulse Ox 100 09/30/25 12:43 O2 Del Method Room Air 09/30/25 12:43 Course Vital Signs Vital signs: Vital Signs Temperature 97.7 F 09/30/25 12:43 Pulse Rate 75 09/30/25 12:43 Respiratory Rate 18 09/30/25 12:43 Blood Pressure 102/57 09/30/25 12:43 Pulse Oximetry 100 09/30/25 12:43 Oxygen Delivery Method Room Air 09/30/25 12:43 Temperature 97.7 F 09/30/25 12:43 Pulse Rate 75 09/30/25 12:43 Respiratory Rate 18 09/30/25 12:43 Blood Pressure 102/57 09/30/25 12:43 Pulse Oximetry 100 09/30/25 12:43 Oxygen Delivery Method Room Air 09/30/25 12:43 MDM - Abdominal Pain MDM Narrative Medical decision making narrative: The patient CBC and chemistry showed no acute pathology and the hCG level was around 800 Initially the ultrasound was done to make sure that the patient had an uterine but with the fact that the patient have a early the ultrasound did not show any intrauterine at the moment and the bilateral ovaries are normal with the left being a little bit bigger than the right Right now the patient pain could be secondary to ovarian cyst but also with the patient history of will still need to rule out ectopic The plan was to do the hCG again on Sunday which is the day after tomorrow and if the level is above 1500 the patient to repeat ultrasound and she will reach out to her OB doctor in case she cannot do the ultrasound outpatient the patient will come back to the ER on Sunday to do the ultrasound The patient also was instructed about coming back to the ER in case of any bleeding or increasing pain She is O- blood group and right now I did explain to her that her early and the fact that this is her no need for any RhoGAM treatment at the moment and the patient is agreeable Lab Data Labs: Lab Results 09/30/25 Range/Units 13:11 WBC 6.7 (4.0-11.0) 10^3/uL RBC 4.13 L (4.20-5.40) 10^6/uL Hgb 12.1 (12.0-16.0) g/dL Hct 36.8 (36.0-48.0) % MCV 89.1 (81.0-99.0) fL MCH 29.3 (26.7-34.0) pg MCHC 32.9 (29.9-35.2) g/dL RDW 12.3 (11.0-15.0) % Plt Count 222 (150-450) 10^3/uL MPV 9.6 (9.5-13.5) fL Neut % (Auto) 61.7 (43.0-75.0) % Lymph % (Auto) 30.1 (20.5-60.0) % [place] % (Auto) 6.3 (1.7-12.0) % Eos % (Auto) 1.2 (0.9-7.0) % Baso % (Auto) 0.3 (0.2-2.0) % Neut # (Auto) 4.1 (1.4-6.5) 10^3/uL Lymph # (Auto) 2.0 (1.2-3.8) 10^3/uL [place] # (Auto) 0.4 (0.3-0.8) 10^3/uL Eos # (Auto) 0.1 (0.0-0.7) 10^3/uL Baso # (Auto) 0.0 (0.0-0.1) 10^3/uL Abs Immat Gran (auto) 0.03 (0.00-0.03) 10^3/uL Imm/Tot Granulo (auto) 0.4 (0.0-0.5) % Sodium 139 (136-145) mmol/L Potassium 3.7 (3.5-5.1) mmol/L Chloride 103 (98-107) mmol/L Carbon Dioxide 30.6 (21.0-32.0) mmol/L Anion Gap 9.1 BUN 11.0 (7.0-18.0) mg/dL Creatinine 0.74 (0.55-1.02) mg/dL Est GFR ( Amer) >60 (>=60 mL/min/1.73m^2) Est GFR (Non-Af Amer) >60 (>=60 mL/min/1.73m^2) BUN/Creatinine Ratio 14.9 Glucose 73 L (74-106) mg/dL Calcium 8.5 (8.5-10.1) mg/dL Total Bilirubin 0.2 (0.2-1.0) mg/dL AST 17 (15-37) U/L ALT 22 (14-59) U/L Alkaline Phosphatase 54 (46-116) U/L Total Protein 6.9 (6.4-8.2) g/dL Albumin 3.4 (3.4-5.0) g/dL Globulin 3.5 g/dL Albumin/Globulin Ratio 1.0 HCG, Quant 858 mIU/mL Blood Type O Negative Antibody Screen Negative Discharge Plan Discharge Chief Complaint: Abdominal Pain Clinical Impression: Abdominal pain affecting Patient Disposition: Home, Self-Care Time of Disposition Decision: 15:41 Condition: Good Mode of Transportation: Private Vehicle Prescriptions / Home Meds: No Action prednisone 50 mg tablet 50 mg PO .COMPLEX Rx Instructions: 50 mg orally 13, 7, 1 hour before procedure diphenhydramine HCl [Allergy Relief(diphenhydramin)] 25 mg capsule 50 mg PO ONCE Rx Instructions: one hour before procedure letrozole [Femara] 2.5 mg tablet 2.5 mg PO DAILY Rx Instructions: begin between days 3 and 5 of mentrual cycle Print Language: Iraqi Instructions: Abdominal Pain in (ED) Additional Instructions: Please make sure you reach out to Dr. Manley to have the blood workup result and the ultrasound on Sunday, October 02 in case you could not get the ultrasound done on that day please come back to the ER to be evaluated Referrals: Elvia Pagan MD [Primary Care Provider, Family Practice] - 1 week Discharge Date/Time: 09/30/25 15:52
== END 2025-09-30 15:52 | disposition home or self-care (01) ==
PROVIDERS: Emergency Provider Emergency Medicine; PCP Family Medicine
DX: O99.891 Other specified diseases and conditions complicating pregnancy (principal); R10.9 Unspecified abdominal pain; O26.891 Other specified pregnancy related conditions, first trimester; Z67.41 Type O blood, Rh negative; Z3A.00 Weeks of gestation of pregnancy not specified
CPT/HCPCS: 36415; 76817; 80053; 84702; 85025; 86850; 86900; 86901; 99284